=== PATIENT | female | born 1940 | race Caucasian/White ===

== ENCOUNTER 2018-03-16 14:06 | Emergency (ER) | payer MEDICARE, SELFPAY ==
[2018-03-16 14:08] VITALS: BP 172/104; PULSE 86; RESP 16; TEMP 36.6; O2SAT 97; BMI 22.8
--- NOTE | 2018-03-16 15:05 | RAD_ITS ---
STUDY: X-RAY - UNILATERAL RIBS ( LEFT ) WITH CHEST REASON FOR EXAM: Female, 77 years old. Fall, pain anterior ribs TECHNIQUE - RIBS: 4 view(s) of the ribs. TECHNIQUE - CHEST: PA COMPARISON: June 04, 2017 FINDINGS - RIBS: Normal visualized ribs without a demonstrated fracture. FINDINGS - CHEST: There is a stable calcified nodule at the left lung base. Normal size heart. There is a hiatal hernia. Normal visualized pulmonary arteries. There is atherosclerotic calcification of the aortic arch. Normal visualized thoracic spine. Normal visualized ribs, clavicles, and shoulders. There is no demonstrated abnormality of the visualized soft tissue structures of the upper abdomen. RAD/Ribs Uni Min 3V w/PA Chest IMPRESSION: RIBS: Normal x-ray examination of the ribs. CHEST: No acute cardiopulmonary process. Electronically Signed: Charlotte Lindo MD at 15:42 EDT Tel , Service support ,
--- NOTE | 2018-03-16 15:05 | RAD_ITS ---
STUDY: X-RAY - LEFT KNEE REASON FOR EXAM: Female, 77 years old. Fall TECHNIQUE: For view(s) of the knee. COMPARISON: None. FINDINGS: There is demineralization of the visualized distal femur. There is demineralization of the tibia and fibula. There could be an acute nondisplaced fracture of the lateral tibial plateau. Normal proximal tibiofibular articulation. There is mild degenerative arthrosis of the medial femorotibial compartment. There is mild degenerative arthrosis of the lateral femorotibial compartment. There is moderate degenerative arthrosis of the patellofemoral articulation. The soft tissue structures are unremarkable. RAD/Knee 4 or More Views IMPRESSION: There could be an acute nondisplaced fracture of the lateral tibial plateau. Electronically Signed: Dorie Rubio MD at 15:42 EDT , Service support ,
--- NOTE | 2018-03-16 15:05 | RAD_ITS ---
STUDY: X-RAY - RIGHT KNEE REASON FOR EXAM: Female, 77 years old. Fall TECHNIQUE: For view(s) of the knee. COMPARISON: None. FINDINGS: There is demineralization of the visualized distal femur. There is demineralization of the tibia and fibula. Normal proximal tibiofibular articulation. There is severe degenerative arthrosis of the medial femorotibial compartment with severe joint space narrowing. There is mild degenerative arthrosis of the lateral femorotibial compartment. 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 No definite joint effusion is seen. RAD/Knee 4 or More Views IMPRESSION: No acute fracture is demonstrated. Electronically Signed: Dorie Rubio MD at 15:40 EDT , Service support ,
--- NOTE | 2018-03-16 15:33 | ED.VISSUMM ---
- ER Visit Summary Date of Service: 03/16/18 Chief Complaint: Fall History of Present Illness: The patient is a 77 F who presents after mechanical fall. She was pushing a family member in a wheelchair when she tripped on 1 of the wheels. She fell and injured both of her knees in the right side of her chest. There was no head injury. She denies loss of consciousness or amnesia. She is not anticoagulated. She denies any headache or vomiting. She denies shortness of breath or abdominal pain. She does complain of pain along the right side of her chest and bilateral knees. She was able to stand on her own and has been able to ambulate without difficulty. Physical Examination: Afebrile vitals are notable for blood pressure 172/104 otherwise normal GCS of 15 no focal or lateralizing neurological deficits No distress No evidence of head trauma Neck nontender palpation Heart regular rate and rhythm Lungs are clear to auscultation with equal breath sounds bilaterally she does have right lower chest wall tenderness I do not appreciate any ecchymosis bruising crepitus Active full range of motion ?4 extremities Patient has diffuse tenderness over the bilateral knees but no appreciable effusion she has abrasions over the bilateral anterior knees. No deformities Normal strength and sensation distally Test Results: Rib series with a PA chest shows normal ribs no acute process. Right knee x-ray shows no acute fracture. Knee x-ray shows a possible acute nondisplaced lateral tibial plateau fracture. CT of the lower extremity is pending. Emergency Department Course and Treatment: X-rays are notable for a possible acute nondisplaced lateral tibial plateau fracture. The patient actually has minimal pain of the left knee she does have good range of motion. Will obtain a CT to further characterize this. Patient signed out to the oncoming physician to follow-up on results and ultimately I do believe the patient will be able to be discharged home. She was also given an incentive spirometer for chest contusion. Treatment Plan: [] Disposition: Pending CT lower extremity Impression: Chest contusion Knee contusions Possible left tibial plateau fracture This note was generated with [employer] dictation software. It may contain incorrect words, spelling, and punctuation that were not noted in review of the chart prior to signing ED Disposition - Plan for ED Patient: Chief Complaint: Fall Instructions: ED Abrasion, ED Contusion Chest Wall, ED Mechanical Fall Referrals: Otilio Gandhi MD [Primary Care Provider] -
--- NOTE | 2018-03-16 15:35 | ED.DEP ---
ED Disposition - Plan for ED Patient: Chief Complaint: Fall Instructions: ED Mechanical Fall, ED Contusion Chest Wall, ED Abrasion Referrals: Otilio Gandhi MD [Primary Care Provider] -
--- NOTE | 2018-03-16 16:16 | ED.DEP ---
ED Disposition - Plan for ED Patient: Chief Complaint: Fall Instructions: ED Abrasion, ED Contusion Chest Wall, ED Mechanical Fall, ED Fx Knee Referrals: Otilio Gandhi MD [Primary Care Provider] - Patito Jimenez DO [STAFF PHYSICIAN] - Additional Instructions: We recommended that you wear a knee immobilizer and bear weight on the left leg. We recommend that you follow-up with orthopedics.
--- NOTE | 2018-03-16 16:19 | ED.DEP ---
ED Disposition - Plan for ED Patient: Chief Complaint: Fall Instructions: ED Abrasion, ED Contusion Chest Wall, ED Mechanical Fall, ED Fx Knee Referrals: Patito Jimenez DO [STAFF PHYSICIAN] - Otilio Gandhi MD [Primary Care Provider] - Additional Instructions: We recommended that you wear a knee immobilizer and not bear weight on the left leg. We recommend that you follow-up with orthopedics.
[2018-03-16 16:35] VITALS: BP 155/101; RESP 16
== END 2018-03-16 16:35 | disposition home or self-care (01) ==
PROVIDERS: Emergency Provider Emergency Medicine; Family Provider Family Medicine; PCP Family Medicine
DX: S20.211A Contusion of right front wall of thorax, initial encounter (principal); S80.02XA Contusion of left knee, initial encounter; S80.01XA Contusion of right knee, initial encounter; S80.212A Abrasion, left knee, initial encounter; S80.211A Abrasion, right knee, initial encounter; W01.0XXA Fall on same level from slipping, tripping and stumbling without subsequent striking against object, initial encounter; Y93.9 Activity, unspecified; Y92.9 Unspecified place or not applicable; K21.9 Gastro-esophageal reflux disease without esophagitis; E78.00 Pure hypercholesterolemia, unspecified; Z90.49 Acquired absence of other specified parts of digestive tract; Z79.899 Other long term (current) drug therapy
CPT/HCPCS: 71101; 73564; 99282

== ENCOUNTER → 2018-08-01 10:42 | Outpatient (CLI) | payer MEDICARE, SELFPAY ==
[2018-08-01 11:53] LABS: Absolute Neutrophil Count 5.6 X10^3/uL (2.0-7.7); Basophil# 0.03 X10^3/uL; Basophil% 0.4 % (0-1); Eosinophil# 0.16 X10^3/uL; Eosinophils% 2.1 % (0-5); Hemoglobin 13.8 g/dl (12.0-15.0); Lymphocyte % 13.2 % (19-41); Mean Corp Hgb Conc 32.9 g/gl (32-36); Mean Corpuscular Hgb 31.4 pg (27.0-32.0); Mean Corpuscular Volume 95.5 fL (81-99); Mean Platelet Vol. 10.2 fl (6.2-12.0); Monocyte# 0.76 X10^3/uL; Neutrophil # 5.63 X10^3/uL (2.7-7.7); Neutrophil % 74.2 % (47-70); POSITIVE COUNT NO; POSITIVE DIFFERENTIAL NO; POSITIVE MORPHOLOGY NO; Platelet Count 253 K/mm3 (150-450); RBC Distribution Width CV 14.2 % (11.6-14.6); RBC Distribution Width SD 47.5 fl (35.1-43.9); White Blood Count 7.6 K/mm3 (4.4-11.0)
[2018-08-01 12:06] LABS: ALB/GLOB Ratio 1.2 RATIO (0.9-2.4); AST(SGOT) 53 U/L (15-37); Alanine Aminotransfer ALT/SGPT 87 U/L (13-56); Albumin, Serum 4.2 g/dL (3.2-5.0); Alkaline Phosphatase 158 U/L (45-117); Anion Gap 9 (5-15); BUN 21 mg/dL (7-18); Calcium,Total 9.1 mg/dL (8.5-10.1); Chloride 102 mmol/L (98-107); Cholesterol 218 mg/dL (200); Creatinine, Serum 0.75 mg/dL (0.55-1.02); EST Glomerular Filtration Rate 79 mL/min (>60); Est Glom Filt Rate - Afr Amer 96 mL/min (>60); Globulin 3.6 g/dL (2.2-4.2); Glucose 89 mg/dL (74-106); High Density Lipoprotein 84 mg/dL; Potassium 3.8 mmol/L (3.5-5.1); Protein, Total 7.8 g/dL (6.4-8.2); Sodium Level 141 mmol/L (136-145); Triglycerides 124 mg/dL; Very Low Density Lipoprotein 25 mg/dL (5-40)
== END ==
PROVIDERS: Family Provider Family Medicine; PCP Family Medicine; Visit Provider Family Medicine
DX: E78.5 Hyperlipidemia, unspecified (principal); I10 Essential (primary) hypertension
CPT/HCPCS: 36415; 80053; 80061; 85025

== ENCOUNTER → 2018-11-27 13:50 | Outpatient (CLI) | payer MEDICARE, SELFPAY | PROVIDERS: Family Provider Family Medicine; PCP Family Medicine; Visit Provider Family Medicine | DX: N39.0 Urinary tract infection, site not specified (principal) | CPT/HCPCS: 87077; 87086; 87088; 87186 ==

== ENCOUNTER → 2019-01-11 14:26 | Outpatient (CLI) | payer MEDICARE, SELFPAY | PROVIDERS: Family Provider Family Medicine; PCP Family Medicine; Visit Provider Family Medicine | DX: N39.0 Urinary tract infection, site not specified (principal) | CPT/HCPCS: 87077; 87086; 87088; 87186 ==

== ENCOUNTER → 2019-02-01 | Outpatient (CLI) | payer MEDICARE, SELFPAY ==
--- NOTE | 2019-02-01 16:24 | US_ITS ---
STUDY: RENAL ULTRASOUND - COMPLETE REASON FOR EXAM: Female, 78 years old. Recurrent UTI TECHNIQUE: Ultrasound evaluation of the kidneys was performed with real-time and static roca-scale imaging. COMPARISON: None. FINDINGS: RIGHT KIDNEY: Normal location of the right kidney, which is normal in size. The right kidney measures 11.3 x 4.8 x 3.7 cm. There is a normal cortex of the right kidney. The renal cortex measures 1.3 cm. There is no right renal mass or cyst. There are no right renal calculi. There is no right hydronephrosis. DISTAL RIGHT URETER: There is non-visualization of the distal right ureter. LEFT KIDNEY: Normal location of the left kidney, which is normal in size. The left kidney measures 10.8 x 5.5 x 5.2 cm. There is a normal cortex of the left kidney. The renal cortex measures 1.8 cm. There is no left renal mass or cyst. There are no left renal calculi. There is no left hydronephrosis. DISTAL LEFT URETER: There is non-visualization of the distal left ureter. BLADDER: The distended urinary bladder has a volume of 209 ml. The post void urinary bladder has a volume of 193 ml. There is a normal wall thickness of the distended urinary bladder but mildly irregular. There is no demonstrated mass within the urinary bladder. There are no demonstrated bladder calculi. US/Kidney and Bladder IMPRESSION: Normal ultrasound of the kidneys. Significant post void residual of the urinary bladder. Mild irregular wall thickness in the urinary bladder. Electronically Signed: Isidro Grossman DO at 20:25 EDT Tel [phone], Service support ,
== END | disposition home or self-care (01) ==
LOC: US 16:19
PROVIDERS: Family Provider Family Medicine; PCP Family Medicine; Referring Provider Urology; Visit Provider Urology
DX: Z87.440 Personal history of urinary (tract) infections (principal)
CPT/HCPCS: 76770

== ENCOUNTER 2019-08-09 13:00 | Outpatient (RCR) | payer MEDICARE, SELFPAY ==
--- NOTE | 2019-08-09 14:10 | HP.PTDCSUM ---
HP - PT D/C Summary It has been my pleasure to treat PAULIE BARRIOS under orders from Otilio Gandhi MD, for the diagnosis of Truncal muscle weakness for a total of 9 visit(s). Discharge Date: Please see the following information for a summary of their discharge status. - Subjective Subjective: Pt. reports therapy has been great, can feel her posture has improved and her muscles have gotten stronger. Feels comfortable using weight machine w/ [employer] membership. - Overall Improvement % Improvement: 95 - Objective Objective/Function: Posture: improved - fair. Gait: no deviations noted. SLS: R/L 15 seconds. ROM: Ankle/Knee/Hip/Lumbar/Shoulder WFL. Strength: Ankle/knee 5/5, Hip 5/5, Shoulder 5/5 Core: fair. 30 STS: 18. Educated on weight machines/exercises to use after PT - Goals Goal 1:: pt. will be I w/ HEP & progression Goal 2:: Pt. will maintain proper posture t/o tx session to demo improved core strength Goal 3:: Pt. will demo 5/5 strength LE/UE - Plan Plan: 08/09/19 Pt. D/C - instructed to continue HEp/exercises I w/ HW membership. Return if usses/concerns. - D/C Information If there are questions or concerns regarding this patient's physical therapy, please feel free to call me at [phone]. Thank you for the referral of this patient. Sincerely, Radha Pike DPT
== END 2019-08-09 15:31 | disposition home or self-care (01) ==
LOC: PT 13:00
PROVIDERS: Family Provider Family Medicine; PCP Family Medicine; Referring Provider Family Medicine; Visit Provider Family Medicine
DX: M62.81 Muscle weakness (generalized) (principal)
CPT/HCPCS: 97110; 97161; 97164

== ENCOUNTER → 2019-09-21 10:34 | Outpatient (CLI) | payer MEDICARE, SELFPAY ==
--- NOTE | 2019-09-21 10:38 | RAD_ITS ---
STUDY: X-RAY - THORACIC SPINE REASON FOR EXAM: Female, 78 years old. ? VERTEBRAL FX, PAIN LEFT SIDE T-SPINE TECHNIQUE: 3 view(s) of the thoracic spine were obtained. COMPARISON: Prior chest and rib series of March 16, 2018 and a prior PA and lateral chest of June 04, 2017 FINDINGS: Normal kyphosis of the thoracic spine. There is no substantial scoliosis. Old moderate superior endplate compression deformity of T12 which is not substantially changed from the prior examinations. Now there is a moderate, 50%, compression deformity of T10 that was not present on the prior chest radiograph of June 04, 2017 or on the rib exam of April 15, 2018. Degenerative disc changes are generally mild to moderate. Atherosclerotic calcifications and tortuosity of the thoracic aorta. RAD/Thoracic Spine 3 Views IMPRESSION: Moderate, 50% compression deformity of T10 that is a new finding since the last available exam of March 16, 2018. Old moderate compression deformity of T12 has been present since the earliest available radiograph of June 04, 2017. Mild to moderate degenerative disc changes. Electronically Signed: Cherelle Krueger MD at 21:18 EST , Service support ,
== END ==
PROVIDERS: Family Provider Family Medicine; PCP Family Medicine; Referring Provider Family Medicine; Visit Provider Family Medicine
DX: M54.9 Dorsalgia, unspecified (principal)
CPT/HCPCS: 72072

== ENCOUNTER → 2019-10-30 10:08 | Outpatient (CLI) | payer MEDICARE, SELFPAY ==
--- NOTE | 2019-10-30 10:45 | MRI_ITS ---
STUDY: MRI THORACIC SPINE WITHOUT CONTRAST REASON FOR EXAM: Female, 78 years old. Thoracic compression fracture TECHNIQUE: Standardized fat and water weighted pulse sequences were obtained in the sagittal and axial planes. COMPARISON: None. FINDINGS: An acute on chronic compression fracture of the T10 vertebral body is present with diffuse edema and loss of height at more than 50% with no significant retropulsion. The anterior aspect of the T10 vertebral body is the most affected component. An acute mild compression fracture of the T11 vertebral body is also present with diffuse edema and mild loss of height without significant retropulsion of the posterior cortex. There is a chronic compression fracture/deformity of the T12 vertebral body with mild loss and mild retropulsion/posterior disc osteophyte complex at the T11-T12 level. Mild marrow edema crosses into the posterior elements of T10 and T11. A benign small 1.63 cm foraminal nerve root sleeve cyst is present on the right at T10-T11. No additional areas of marrow edema or loss of height are present. Mild to moderate multilevel disc space narrowing with diffuse disc bulges and protrusions are present at multiple levels throughout the thoracic spine but without direct cord compression. No significant central canal stenosis is present. A benign fatty hemangiomas present in the central aspect of the T11 vertebral body. Normal kyphosis of the thoracic spine. There is no substantial scoliosis. Normal visualized thoracic cord. Normal conus medullaris that terminates at the T12-L1 level. No cord edema or syrinx formation is seen. No critical foraminal stenosis is seen on the current study. Multilevel endplate spondylosis is present. The soft tissue structures are unremarkable. MRI/Spine Thoracic (Routine) IMPRESSION: 1. Acute on chronic compression fracture of the T10 vertebral body 2. Acute mild compression fracture of the T11 vertebral body. 3. Old compression deformity of the T12 vertebral body. 4. Multilevel degenerative changes. 5. A benign small 1.63 cm foraminal nerve root sleeve cyst is present on the right at T10-T11. Electronically Signed: Zafar Dutton MD at 17:27 EST , Service support ,
== END ==
PROVIDERS: PCP Family Medicine; Referring Provider Nurse Practitioner Family; Visit Provider Nurse Practitioner Family
DX: M48.54XA Collapsed vertebra, not elsewhere classified, thoracic region, initial encounter for fracture (principal)
CPT/HCPCS: 72146

== ENCOUNTER 2019-11-19 08:47 | Day surgery (SDC) | payer MEDICARE, SELFPAY ==
--- NOTE | 2019-11-19 | BON_PTH ---
PATIENT: PAULIE BARRIOS LOC: [facility] – [place] U#:[id number] AGE/SX: 78/F ROOM: RE11/19/[address]: Dr. Rex Cash MD : [id number] BED: DIS: 11/19/2019 SPEC #: [id number] RECD: 11/19/19 13:37 STATUS: DION REQ #: [id number] JUAN CARLOS: 11/19/19 00:[address]: Rex Cash DEPT: SURGICAL PATHOLOGY RECD BY: Alan Moore ENTERED: 11/19/19 13:38 SP TYPE: Bone OTHR DR: Dr. Otilio Gandhi MD Tissues: A - Vertebra, NOS B - Vertebra, NOS Procedures: Decalcification bone/plaque Surgery Specimen Level V HEADER OPERATION: Kyphoplasty T10 and T11 PRE-OP DIAGNOSIS: Compression fracture thoracic spine T10 and T11 TISSUE SUBMITTED: A - T10 bone biopsy, B - T11 bone biopsy MICROSCOPIC DIAGNOSIS A. T10 bone, biopsy: Consistent with organizing fracture callous. B. T11 bone, biopsy: Consistent with organizing fracture callous. AM:bunny 11/21/19 MICROSCOPIC DESCRIPTION Slides are reviewed. GROSS DESCRIPTION A - Received in fixative is one container labeled with the patient's name and designated T10 bone biopsy. The specimen consists of an elongated piece of hill bone measuring 0.6 cm in length and 0.2 cm in diameter. The specimen is totally submitted in one cassette after decalcification. B - Received in fixative is one container labeled with the patient's name and designated T11 bone biopsy. The specimen consists of an elongated piece of hill bone measuring 0.4 cm in length and 0.2 cm in diameter. The specimen is totally submitted in one cassette after short decalcification. / SJ:bunny 11/19/19 TC: CPT: 36740 x2, 93546 x2
[2019-11-19 09:23] VITALS: BP 147/86; PULSE 89; RESP 14; TEMP 36.4; O2SAT 97; BMI 21.9
[2019-11-19] MEDS: Lactated Ringers 1,000 ML 100 ML IV (09:49)
--- NOTE | 2019-11-19 10:42 | RAD_ITS ---
STUDY: X-RAY - THORACIC SPINE REASON FOR EXAM: Female, 78 years old. KYPHOPLASTY T10-T11 -- 226.4 FLUORO SEC, 35.33mGy, 22 FLUORO IMAGES TECHNIQUE: 7 intraoperative view(s) of the thoracic spine were obtained. COMPARISON: None. FINDINGS: Intraoperative imaging provided for kyphoplasty of the T10 and T11 vertebrae. RAD/Thoracic Spine 2 Views IMPRESSION: Intraoperative imaging provided for kyphoplasty of the T10 and T11 thoracic vertebrae. Electronically Signed: Toby Amaya, at 15:48 EST , Service support ,
[2019-11-19] MEDS: Bupivacaine Mpf 0.5% 30 ML VIAL (10:48)
[2019-11-19] MEDS: Cefazolin 2 GM in 0.9% Normal Saline 100 ML IV (10:48)
[2019-11-19] MEDS: Bacitracin 500 UNITS/GM PACKET (11:08)
[2019-11-19 11:55] VITALS: BP 140/87; BP 147/86; PULSE 70; RESP 16; TEMP 36.7; O2SAT 100
[2019-11-19 12:00] VITALS: BP 137/73; BP 147/86; PULSE 73; RESP 16; O2SAT 100
[2019-11-19 12:05] VITALS: BP 147/86; BP 171/101; PULSE 76; RESP 16; O2SAT 100
[2019-11-19 12:10] VITALS: BP 147/86; BP 149/91; PULSE 78; RESP 16; TEMP 36.7; O2SAT 100
[2019-11-19 12:42] VITALS: BP 147/86
--- NOTE | 2019-11-19 12:55 | OP.PCM_ITS ---
Report of Operation Date of Procedure: 11/19/19 Description of Surgical Findings:: PROCEDURES: 1. Dorys balloon kyphoplasty at the T10 level and T11 level 2. Insertion of Dorys HV-R bone cement under low pressure at the T10 and T11 Level 3. Bone biopsy at T10 and T11 4. Fluoroscopic guidance and interpretation of images PREOPERATIVE DIAGNOSES: Osteoporosis, compression fracture of T10 and T11 POSTOPERATIVE DIAGNOSES: Osteoporosis, compression fracture of T10 and T11 ANESTHESIA: MAC COMPLICATIONS: None BLOOD LOSS: Minimal PROCEDURE IN DETAIL: History and physical today was reviewed. Risks and benefits of procedure explained. The patient understood, agreed to procedure, informed consent was obtained. IV inserted per routine protocol. The patient was taken to the operating room, placed in the prone position with a pillow positioned underneath the chest. A 2 g of Ancef IV piggyback was infused per anesthesia. The upper and middle back area was prepped and draped in a sterile fashion using iodine x3. Under direct visualization with fluoroscopy with the C-arm, which brought into position on AP as well as lateral view at the T10 level., the T10 pedicle was then identified. In the view of the collapsed T10, a transpedicular approach to the vertebral body was appropriate. Starting on the left side at L2 level, skin and subcutaneous tissue in size approximately 14 cc of a mixture of 0.5% Marcaine and 2% lidocaine with a 25-gauge regular needle followed by a 25-gauge 3-1/2 inch spinal needle towards the pedicle to anesthetize the periosteum,an 11-gauge needle was advanced through the T10 pedicle through the junction of the pedicle and the vertebral body on the left side. Position was then confirmed on AP as well as lateral view. Following satisfactory placement of the needle to make sure it is further off the midline and interlaminar space. the 11-gauge trocar was advanced approximately 3 mm from the anterior cortex on the lateral view. AP and lateral images were then taken to verify position and trajectory of the needle. The introducer was then advanced through the pedicle. Once the trocar was at the junction of the pedicle and the vertebral body, a lateral image was taken to ensure that the cannula was positioned approximately 1 cm past the vertebral body and a lateral image was then taken to ensure correct position and through the cannula, a drill was then advanced into the vertebral body under fluoroscopic guidance towards the anterior cortex creating a channel. The anterior cortex were then probed with guide pen to ensure no perforation in the anterior cortex. After completion of the entry into the vertebral body, a 15 mm inflatable bone tamp was then inserted through the cannula and advanced under direct fluoroscopic guidance into the vertebral body near the anterior cortex., The biopsy was then taken at the T10 level. After completion of the entry into the vertebral body, a balloon tamp utilizing radiopaque marker bands on the bone tamp were identified using AP and lateral images. The above sequence of instrument placement was then repeated on the left side at the T11 the vertebral body. Once both bone tamps were in position, they were inflated to approximately 4 mL and making sure that the pressure is not passing 250 psi. Expansion of the bone tamp was then done sequentially in an increments of 0.25 to 0.5 mL of contrast with a careful attention was being paid to the inflation pressure and the balloon position. The inflation was then monitored on AP and lateral view images. The final balloon volume was 2.5 mL on the left side T10 and 2.7 mL on the left T11 level. There was no breach of the lateral wall or the anterior cortex of the vertebral body. Direct reduction of the fracture was then achieved. Endplate movement was then noticed and approximately 3-5 mm of the height baptist was achieved at T10 and at approximately 3 mm reduction was then achieved at the T11 level. Under fluoroscopic imaging and a bone void filler, internal fixation was achieved through a low pressure injection of a [place] HV-R bone cement. The cavity was then filled with a total volume of 3.8 mL on the left side at T10 and approximately 3.6 mL of cement on the left side at the T11 level. Once the bone cement had hardened, the cannula was then removed. Once the cannula was removed and satisfactory hemostasis was maintained, the incision as then closed with a 4-0 Vicryl at the skin. The patient was kept in the prone position for approximately 10 minutes post-cement injection. The patient was then turned into supine position, monitored briefly and returned to PACU. The patient was moving both of her lower extremities at the same time without any apparent neurological deficits. Throughout the procedure, there were no intraoperative complications, Motor as well as sensory exam was unchanged from prior to procedure. ESTIMATED BLOOD LOSS: Minimal less than 25 mL ASSESSMENT AND PLAN: This is a 78-year-old F with compression fracture of T10 and T11, osteoporosis, status post [place] balloon kyphoplasty at T10, Dorys balloon kyphoplasty at T11 and insertion of Dorys HV-R bone cement under low pressure at T10 and T11 level and bone biopsied at both levels. The patient will continue her current medication. The patient will follow-up in approximately 1 week for re-evaluation, postop instructions were given to the patient as well as her daughter in writing as well as verbally.
== END 2019-11-19 13:11 | disposition home or self-care (01) ==
LOC: SDC 08:51 → AC 08:55
PROVIDERS: PCP Family Medicine; Referring Provider Anesthesiology Pain Medicine; Visit Provider Anesthesiology Pain Medicine
PROC: (CPT 22513; principal; 2019-11-19 10:45)
DX: S22.070A Wedge compression fracture of T9-T10 vertebra, initial encounter for closed fracture (principal); S22.080A Wedge compression fracture of T11-T12 vertebra, initial encounter for closed fracture; W19.XXXA Unspecified fall, initial encounter; Y93.9 Activity, unspecified; Y92.9 Unspecified place or not applicable; Y99.9 Unspecified external cause status; M81.0 Age-related osteoporosis without current pathological fracture; I10 Essential (primary) hypertension; E78.5 Hyperlipidemia, unspecified; K21.9 Gastro-esophageal reflux disease without esophagitis; Z78.0 Asymptomatic menopausal state; Z79.899 Other long term (current) drug therapy; Z79.891 Long term (current) use of opiate analgesic
CPT/HCPCS: 01936; 22513; 22515; 72070; 76000; 88305; 88307; 88311; J7120

== ENCOUNTER 2019-12-02 16:21 | Observation (INO) | payer MEDICARE, SELFPAY ==
[2019-12-02] VITALS (13 sets, daily range): BP systolic 150–181; BP diastolic 95–121; PULSE 71–105; RESP 11–18; TEMP 36.4–36.6; O2SAT 96–98; BMI 23.6; BMI 21.6
--- NOTE | 2019-12-02 16:46 | EKG12_ITS ---
Test Reason : NEURO Blood Pressure : / mmHG Vent. Rate : 085 BPM Atrial Rate : 085 BPM P-R Int : 150 ms QRS Dur : 086 ms QT Int : 380 ms P-R-T Axes : 039 -38 021 degrees QTc Int : 452 ms Sinus rhythm with Premature atrial complexes Possible Left atrial enlargement Left axis deviation Abnormal ECG Confirmed by ABBE FIORE, ANAT ([id number]), editorial writer DIPAK AMANDA ([id number]) on 12/03/2019 10:21:17 AM Referred By: PERRI Confirmed By:ANAT MCADAMS MD
--- NOTE | 2019-12-02 16:46 | CT_ITS ---
STUDY: CT BRAIN WITHOUT CONTRAST REASON FOR EXAM: Female, 78 years old. SHARP PAIN TO FOREHEAD,THEN HEADACHE FOLLOWED BY LEFT HAND NUMBNESS -- AL SYMPTOMS RESOLVED ON RIDE TO HOSP RADIATION DOSAGE (If Supplied By Facility): CTDIvol = ( 44.99 ) mGy, DLP = ( 745.49 ) mGycm TECHNIQUE: Transaxial CT imaging of the brain was performed without administration of intravenous contrast material. Individualized dose optimization techniques were used for this CT. COMPARISON: No relevant priors. FINDINGS: Normal soft tissue structures. Normal calvarium. There is mild cerebral atrophy with widening of the extra-axial spaces and ventricular dilatation. There are areas of decreased attenuation within the white matter tracts of the supratentorial brain, consistent with microvascular disease changes. Normal basal ganglia and thalami. Normal brainstem. There is mild cerebellar atrophy. There is no intracranial hemorrhage. There are no findings of an acute ischemic infarction. Normal visualized paranasal sinuses. CT/Brain/Head without Contrast IMPRESSION: Chronic involutional changes of the brain. Electronically Signed: Bogdan Davis DO at 17:30 EST Tel , Service support ,
--- NOTE | 2019-12-02 16:50 | RAD_ITS ---
STUDY: X-RAY CHEST REASON FOR EXAM: Female, 78 years old. Headache TECHNIQUE: Single frontal view of the chest. COMPARISON: 06/04/17 FINDINGS: Cardiac silhouette unremarkable. Pulmonary vascularity unremarkable. Aorta atherosclerotic. No focal airspace opacities. No pleural effusions. Left base granuloma. Upper abdomen unremarkable. There is evidence of prior lower thoracic kyphoplasty. No pneumothorax. RAD/Chest 1 View IMPRESSION: No acute cardiopulmonary findings Electronically Signed: Sg Pugh, at 17:50 EST Tel , Service support ,
[2019-12-02 17:02] LABS: Absolute Lymphocyte Count 1.12 X10^3/uL (0.83-4.51); Absolute Neutrophil Count 3.7 X10^3/uL (2.0-7.7); Basophil# 0.02 X10^3/uL; Basophil% 0.4 % (0-1); Eosinophil# 0.04 X10^3/uL; Eosinophils% 0.7 % (0-5); Hematocrit 42.4 % (37-47); Hemoglobin 13.8 g/dL (12.0-15.0); Lymphocyte # 1.12 X10^3/ul (4.0); Lymphocyte % 20.7 % (19-41); Mean Corp Hgb Conc 32.5 g/dL (32-36); Mean Corpuscular Hgb 31.4 pg (27.0-32.0); Mean Corpuscular Volume 96.4 fL (81-99); Mean Platelet Vol. 9.6 fl (6.2-12.0); Monocyte# 0.55 X10^3/uL; Monocyte% 10.1 % (0-10); NRBC Flagged by Analyzer 0 % (0-5); Neutrophil # 3.67 X10^3/uL (2.7-7.7); Neutrophil % 67.7 % (47-70); Platelet Count 270 K/mm3 (150-450); RBC Distribution Width CV 13.9 % (11.6-14.6); RBC Distribution Width SD 49.6 fl (35.1-43.9); White Blood Count 5.4 K/mm3 (4.4-11.0)
[2019-12-02 17:06] LABS: Partial Thromboplast Time 27.1 Seconds (24.1-36.2); Prothrombin Time (Protime)PT. 13.3 SECONDS (11.7-14.9)
[2019-12-02 17:16] LABS: Bedside Glucose 99 mg/dL (70-110)
--- NOTE | 2019-12-02 17:16 | ED.DCSUM_ITS ---
History of Present Illness Chief Complaint: Neuro S/Sx Informant: Patient, Family, Promotional Advertising Assistant Onset: Today Context: Sudden Onset Timing: - - Has resolved lasted approximately 30 minutes Quality and Location: Left Arm Parasthesia, Left Arm Weakness. Negative for: Right Facial Droop, Left Facial Droop, Right Face Paresthesia, Left Face Parasthesia, Right Arm Parasthesia, Right Leg Parasthesia, Left Leg Parasthesia, Right Arm Weakness, Right Leg Weakness, Left Leg Weakness, Slurred Speech, Expressive Aphasia, Receptive Aphasia, Difficulty with Ambulation Onset: Suddenly around 3:30 PM Current Severity: Mild Maximum Severity: Severe Worsened by: Nothing Relieved by: Rest Associated Symptoms: Negative for: Headache, Nausea, Vomiting, Chest Pain Narrative: 78-year-old female past medical history of hyperlipidemia presents to the emergency department by squad from home with left upper extremity weakness and paresthesias. Around 3:30 PM the patient stood up she states that she noticed some squiggly lines in her vision in both eyes that lasted a few seconds she developed a frontal headache and then she had numbness and weakness in her left upper extremity. She states that it lasted approximately 30 minutes and has since resolved. She did not lose vision. She had no double vision. She had no difficulties with speech. She was able to ambulate normally. She did not have any lower extremity symptoms. No facial droop. No chest pain. She was not lightheaded or dizzy. No nausea or vomiting. No diaphoresis. No falls injuries or traumas. She is not on anticoagulation. She has no constitutional symptoms. She had a kyphoplasty done about 2.5 weeks ago and has been doing well since that time. She denies a history of TIA or CVA. Prior similar symptoms: No Recent Illness/Hospitalization: No Past Medical History - Allergies and Home Meds Allergies/Adverse Reactions: Allergies amoxicillin Adverse Reaction (Verified 12/02/19 16:47) Unknown ibuprofen Adverse Reaction (Verified 12/02/19 16:47) Unknown loratadine [From Claritin] Adverse Reaction (Verified 12/02/19 16:47) Unknown pravastatin [From Pravachol] Adverse Reaction (Verified 12/02/19 16:47) Unknown sulfamethoxazole [From Septra] Adverse Reaction (Verified 12/02/19 16:47) Unknown trimethoprim [From Septra] Adverse Reaction (Verified 12/02/19 16:47) Unknown COMBID Adverse Reaction (Uncoded 12/02/19 16:47) Unknown Primary Care Physician: Otilio Gandhi MD [Primary Care Provider] - Prior records reviewed: Yes Past Medical History: - - Hyperlipidemia Surgical History: - - Kyphoplasty Lives: Alone Smoking Status: Never smoker Alcohol: None Drugs: None Review of Systems All systems negative except as indicated General: Denies: Chills, Fever Eyes: Denies: Visual changes - bilaterally, Blurred Vision - bilaterally, Diplopia ENT: Denies: Rhinorrhea, Sore throat Cardiovascular: Denies: Chest pain, Palpitations, Heart racing Respiratory: Denies: Dyspnea, Cough, Sputum Gastrointestinal: Denies: Abdominal pain, Nausea, Vomiting, Diarrhea Genitourinary: Denies: Dysuria, Hematuria, Frequency Musculoskeletal: Denies: Myalgias, Arthralgias, Neck pain, Back pain, Swelling, Extremity Pain Skin: Denies: Rash, Abscess, Abrasions, Wounds Neurological: Reports: Headache, Weakness, Parasthesia. Denies: Numbness Psych: Denies: Depression, Anxiety Endocrine: Denies: Polyuria, Polydipsia Hematologic: Denies: Easy bruising, Easy bleeding Allergy: Denies: Uticaria, Swelling of the mouth, Swelling of the tongue STROKE Vital Signs/Narrative: Vital Signs Temp Pulse Resp BP Pulse Ox 12/02/19 16:24 98 F 91 18 154/104 H 98 Inital Vital Signs reviewed: Yes General: Well nourished, Well developed Head: Normocephalic, Atraumatic Eyes: Perrl, EOMI ENT: Moist mucous membranes Neck: Supple, Nontender, No lymphadenopathy, No JVD Cardiovascular: Regular rate, Regular rhythm, No murmurs Respiratory: No distress, CTA bilaterally, Chest nontender Abdomen: Soft, Nontender, Nondistended, Normal bowel sounds, No masses Back: Nontender, Normal Inspection Extremities: Nontender, No edema Skin: Normal color, No rash, No Trauma Neurological: Alert, Oriented x3, Cranial nerves II-XII grossly intact, Normal Strength, Normal Sensation, Normal DTR, Normal Gait, Recall 12/03, - - NIH stroke scale was performed and was 0 Psychological: Normal affect, Normal Mood Diagnostic/Tx/Re-eval - Rhythm Strip Rhythm Strip: Sinus Rhythm Rate: 85 Ectopy: None - EKG Initial EKG Interpretation: Sinus Rhythm, No Acute Injury Pattern Prior: Unchanged - Medical Decision Making Stroke Team Activated: No On arrival NIH stroke scale was performed and was 0. EKG was sinus rhythm no ST segment or T wave changes normal intervals no ectopy. CT brain was obtained showing chronic changes no acute abnormality. Laboratory work-up was unremarkable as well as was chest x-ray. Patient will require admission for further work-up and evaluation secondary to her transient episode of left upper extremity weakness and paresthesias. She remains hemodynamically stable she has not had any worsening or return of her symptoms. ED Disposition - Plan for ED Patient: Referrals: Otilio Gandhi MD [Primary Care Provider] -
[2019-12-02 17:26] LABS: Anion Gap 5 (5-15); BUN 32 mg/dL (7-18); BUN/Creat Ratio 38.3 RATIO (10-20); Calcium,Total 9.8 mg/dL (8.5-10.1); Chloride 104 mmol/L (98-107); Creatinine, Serum 0.84 mg/dL (0.55-1.02); EST Glomerular Filtration Rate 70 mL/min (>60); Est Glom Filt Rate - Afr Amer 84 mL/min (>60); Estimated Creatinine Clearance 52.81 ml/min; Glucose 110 mg/dL (74-106); Potassium 3.4 mmol/L (3.5-5.1); Sodium Level 140 mmol/L (136-145)
--- NOTE | 2019-12-02 18:57 | ED.RN ---
dr. Jordan cancels NIH every 30 minutes.
--- NOTE | 2019-12-02 20:01 | HP.PCM_ITS ---
Problem List (1) TIA (transient ischemic attack) Status: Acute Comment: vs a migraine equivalent (2) Migraines Status: Suspected Qualifiers: Migraine type: with aura (3) Elevated blood pressure reading Status: Acute Comment: No history of hypertension (4) Hyperlipidemia Status: Chronic (5) Osteoarthritis Status: Chronic (6) Hypokalemia Status: Acute (7) Dehydration Status: Acute (8) Grief reaction Status: Acute Comment: 2 months ago (9) Vertebral compression fracture Status: Acute (10) History of kyphoplasty Status: Acute Comment: Dr. Albert 2 weeks ago (11) Osteoporosis Status: Suspected History of Present Illness Date of Admission: 12/02/19 Chief Complaint: numbness and weakness of the left hand The patient is a 78 year old F with a past medical history of hyperlipidemia, osteoarthritis and vertebral compression fractures with recent kyphoplasty by Dr. Albert within the past 2 weeks who presented to the emergency department at [facility] on 12/02/2019 by galina complaining of numbness and weakness in her left hand. Vital signs at presentation to the emergency room were temp 98, pulse rate 91, blood pressure 154/104, respiratory rate 18 and she was 98% saturated on room air. Prior to the onset of numbness and weakness she had squiggly lines in her right eye followed by a frontal headache and then the numbness and weakness in her left hand. She has in the past had squiggly lines and headaches but has never had any neurologic complaints. She denies any history of migraine cephalgia but she has a grandson who has migraines. She denies any history of CVA or TIA. Blood pressure is elevated in the emergency room but she says it has been elevated recently. Her 2 months ago and she lives by herself and is anxious. She has never been treated for hypertension. CT of the brain in the emergency department showed chronic involutional changes only. Chest x-ray showed no acute cardiopulmonary findings. CBC is unremarkable. The chemistry showed a low potassium at 3.4 and a BUN of 32 with a creatinine of 0.84 and a BUN/creatinine ratio of 38.3. Troponin was less than 0.015. EKG had a left axis deviation with no acute ST or T wave changes. The numbness and weakness in her left hand completely resolved while she was in the emergency department. Her NIH score was 0 at the time of my exam. She is being admitted to a monitored bed on PCU to be evaluated for TIA versus possible classic migraine with aura and transient focal neurologic deficit. Past Medical History Past Medical History (Chronic Problems): Chronic Problems Hyperlipidemia (Chronic) Osteoarthritis (Chronic) Allergies amoxicillin Adverse Reaction (Verified 12/02/19 16:47) Unknown ibuprofen Adverse Reaction (Verified 12/02/19 16:47) Unknown loratadine [From Claritin] Adverse Reaction (Verified 12/02/19 16:47) Unknown pravastatin [From Pravachol] Adverse Reaction (Verified 12/02/19 16:47) Unknown sulfamethoxazole [From Septra] Adverse Reaction (Verified 12/02/19 16:47) Unknown trimethoprim [From Septra] Adverse Reaction (Verified 12/02/19 16:47) Unknown COMBID Adverse Reaction (Uncoded 12/02/19 16:47) Unknown Home Medications: Ambulatory Orders Medication Instructions Recorded Atorvastatin Calcium [Lipitor] 10 mg PO QHS 02/27/17 Dicyclomine HCl 10 mg PO DAILY 02/27/17 Omeprazole [Prilosec] 20 mg PO DAILY 02/27/17 Cholecalciferol (Vitamin D3) 1,000 unit PO DAILY 03/16/18 [Vitamin D3] Mv-Mn/Folic AC/Calcium/Vit K1 1 each PO DAILY 03/16/18 [Women's 50 Plus Daily Formula] Naproxen Sodium [Aleve] 220 mg PO DAILY 03/16/18 Cranberry Fruit Extract [Cranberry] 500 mg PO DAILY 11/15/19 Surgical History: cholecystectomy, - - Kyphoplasty, bilateral oophorectomy for ovarian cysts Psychiatric History: No pertinent psych hx 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 Smoking Status: Never smoker Tobacco Use: Non-smoker Alcohol: None Drugs: None - *Family History Maternal History Items: Hypertension, - - Her mother had a stroke and or a heart attack, patient cannot recall, and at the age of 83 Paternal History Items: - - Her father when she was only 1 years old and she has no knowledge of him or her paternal side of the family Sibling History Items: No pertinent history Offspring History Items: - - She has a daughter who is healthy. Review of Systems Constitutional: Reports: Weight Change - she has lost some weight.....appetite is somewhat decreased due to grief related to her passing away 2 months ago. Denies: Chills, Fever Eyes: Reports: Vision Change - squiggles in the R eye prior to the onset of CENT[place] and then L hand numbness and weakness HEENT: Denies: Head Aches, Sinus Congestion, Sinus Drainage Cardiovascular: Denies: Chest Pain, Edema, Heaviness, Light Headedness, Orthopnea, Palpitations, Syncope Respiratory: Denies: Cough, Shortness of Breath, Shortness of breath at rest, Sputum production Gastrointestinal: Denies: Abdominal Pain, Constipation, Diarrhea, Nausea, Vomiting Genitourinary: Denies: Dysuria Gynecological: Denies: Vaginal discharge Musculoskeletal: Denies: Joint Pain, Joint Tenderness Skin: Denies: Jaundice, Rash, Wounds Neurological: Reports: Focal weakness, Numbness. Denies: Balance problems, Blurred vision, Double vision, Change in Speech, Slurred speech, Confusion, Tingling, Tremor, Seizures Psychiatric: Reports: Anxiety, Depression - suspect. Denies: Homicidal Ideations, Suicidal Ideations Endocrine: Reports: Change in Body Habitus. Denies: Heat/ Cold Intolerance, Hx of Thyroiditis Hematologic/ Lymphatic: Denies: Easy Bruising, Easy Bleeding, Hx of blood clot VTE Information - Inpt Only VTE Present on Admission: No VTE Mechan Device Prophylaxis: None VTE Pharm Prophylaxis ordered?: No Reason prophylaxis not ordered:: Treatment Not Indicated Patient Problems: Active and Suspected Problems TIA (transient ischemic attack) (Acute) vs a migraine equivalent Migraines (Suspected) Elevated blood pressure reading (Acute) No history of hypertension Hypokalemia (Acute) Dehydration (Acute) Grief reaction (Acute) 2 months ago Vertebral compression fracture (Acute) History of kyphoplasty (Acute) Dr. Albert 2 weeks ago Osteoporosis (Suspected) - Physical Exam Vitals/I&O's: Vital Signs Temp Pulse Resp BP Pulse Ox 98 F 77 16 150/95 H 96 12/02/19 16:24 12/02/19 18:30 12/02/19 18:30 12/02/19 18:30 12/02/19 18:30 Oxygen Delivery Method Room Air Weight: 151 lb 3.794 oz Body Mass Index (BMI) 23.6 Finger Stick Blood Glucose 99 General: Alert, Oriented x3, Cooperative, No apparent distress, Well developed, Well nourished HEENT: Atraumatic, PERRLA, EOMI, Normocephalic Oral: Dry Mucosa Neck: Supple, No JVD, Negative Carotid Bruits, No Nodes, No Nuchal Rigidity, Trachea Midline, - - Carotids had brisk upstroke and excellent pulse volume bilaterally Lungs: Clear to auscultation, Normal air movement Cardiovascular: Regular rate, Regular Rhythm, Normal S1, Normal S2, No murmurs, No rub noted, No Gallop Abdomen: Bowel Sounds Present, Soft, Non Tender, Non-Distended, - - No guarding with palpation Extremities: No clubbing, No cyanosis, No edema, Capillary Refill Less than 3 Seconds, No Calf Tenderness, Peripheral Pulses Normal Skin: No rashes, No breakdown Musculoskeletal: No Tenderness to Palpation of Joints or Extremities Neurological: Cranial nerves II-XII grossly intact, Neuro grossly intact Psych/Mental Status: Normal Affect, Appropriate Laboratory Results 12/02/19 16:30: WBC 5.4, RBC 4.40, Hgb 13.8, Hct 42.4, MCV 96.4, MCH 31.4, MCHC 32.5, RDW Std Deviation 49.6 H, RDW Coeff of Elizabeth 13.9, Plt Count 270, MPV 9.6, Immature Gran % (Auto) 0.400, Neut % (Auto) 67.7, Lymph % (Auto) 20.7, [place] % (Auto) 10.1 H, Eos % (Auto) 0.7, Baso % (Auto) 0.4, Absolute Neuts (auto) 3.7, Absolute Lymphs (auto) 1.12, Nucleated RBC % 0 12/02/19 16:30: PT 13.3, INR 1.0, APTT 27.1 12/02/19 16:30: Sodium 140, Potassium 3.4 L, Chloride 104, Carbon Dioxide 31.0, Anion Gap 5, BUN 32 H, Creatinine 0.84, Estim Creat Clear Calc 52.81, Est GFR (MDRD) Af Amer 84, Est GFR (MDRD) Non-Af 70, BUN/Creatinine Ratio 38.3 H, Glucose 110 H, Calcium 9.8, Troponin I < 0.015 12/02/19 16:51: POC Glucose 99 Assessment/Plan All Active Problems TIA (transient ischemic attack) (Acute) Elevated blood pressure reading (Acute) Hypokalemia (Acute) Dehydration (Acute) Grief reaction (Acute) Vertebral compression fracture (Acute) History of kyphoplasty (Acute) Impressions 1. Transient weakness and numbness of the left hand. Possible TIA versus classic migraine with focal neurologic deficit. Noncontrasted CT brain shows involutional changes only and the symptoms have completely resolved. Will obtain CTA of the neck and brain in the a.m. to rule out any significant arterial sclerosis especially in light of increased blood pressure and history of hyperlipidemia. 2. Elevated blood pressure with no history of hypertension. Suspect this is related to the recent passing of her and her recent increased anxiety. PRN labetalol has been ordered. We will continue to monitor. May require an antihypertensive going forward. 3. Dehydration 4. Hypokalemia 5. Recent kyphoplasty for vertebral compression fractures by Dr. Albert 6. Suspected osteoporosis 7. Hyperlipidemia on atorvastatin-we will continue Order set for TIA/CVA has been activated. Will order 325 mg p.o. of aspirin now and then 81 mg daily CTA of the head and neck in the a.m. Will defer MRI since the sx have completely resolved and her NIH is 0. Patient may benefit from grief counseling If she has not had a DEXA in the past she should have this and it can be ordered as an outpatient. Code Visit OBSV E&M: 00730 Initial observation care L3
[2019-12-02] MEDS: 0.9% Normal Saline 1,000 ML 100 ML IV (20:56)
[2019-12-02] MEDS: Acetaminophen 325 MG Tablet 650 MG PO (20:56)
[2019-12-02] MEDS: Aspirin 325 MG Tablet PO (20:56)
[2019-12-02] MEDS: 0.9% Saline Lock 10 ML Syringe IV (21:01)
[2019-12-03] VITALS (9 sets, daily range): BP systolic 118–150; BP diastolic 74–99; PULSE 67–99; RESP 16–17; TEMP 36.2–36.9; O2SAT 96–97
--- NOTE | 2019-12-03 05:55 | CT_ITS ---
STUDY: CTA HEAD AND NECK WITH CONTRAST REASON FOR EXAM: Female, 78 years old. TIA WITH HTN RADIATION DOSAGE (If Supplied By Facility): CTDIvol = ( 31.05 ) mGy, DLP = ( 1296.70 ) mGycm TECHNIQUE: CT angiography was performed with a multi-detector CT scanner. Data acquisition was obtained from the skull base through the vertex following intravenous administration of IV 100mL [id number]-[id number]. MIP images were reconstructed from the axial data set. Post-processing of the angiographic images was performed, with multiplanar reformation, and 3D reconstruction. Individualized dose optimization techniques were used for this CT. COMPARISON: Noncontrast CT scan brain 12/02/2019 FINDINGS: Normal bilateral petrous carotid arteries. There is minimal calcified plaque formation of the right cavernous carotid artery, without a cross-sectional luminal stenosis. There is minimal calcified plaque formation of the left cavernous carotid artery, without a cross-sectional luminal stenosis. Normal right A1 segments of the anterior cerebral artery. Normal left A1 segments of the anterior cerebral artery. Normal intact anterior communicating artery (ACOM). Normal bilateral A2 segments of the anterior cerebral arteries. Normal right M1 and M2 segments of the middle cerebral arteries, with a normal M1 bifurcation. Normal left M1 and M2 segments of the middle cerebral arteries, with a normal M1 bifurcation. Normal right posterior communicating artery (PCOM). Normal left posterior communicating artery (PCOM). Normal bilateral vertebral arteries. Normal basilar artery with a normal basilar bifurcation. The visualized bilateral superior cerebellar (SCA) arteries are normal. Normal bilateral P1, P2 and visualized P3 segments of the posterior cerebral arteries. There is no demonstrated aneurysm of the mary's ig[place] of [place]. There is no demonstrated acute abnormality of the visualized brain. AORTIC ARCH: There is atherosclerotic calcific plaque formation of the aortic arch and great vessels arising from the aortic arch, without a hemodynamically significant stenosis. There is a normal origin of the brachiocephalic, left common carotid, and left subclavian arteries. RIGHT CAROTID ARTERIES: There is atherosclerotic tortuous elongation of the right common carotid artery. There is mild atherosclerotic plaque formation, without narrowing of the right carotid bulb. Normal origin of the right internal carotid (ICA) artery without a hemodynamically significant stenosis. There is atherosclerotic tortuous elongation of the cervical portion of the right internal carotid artery. Normal origin of the right external carotid artery (ECA). LEFT CAROTID ARTERIES: There is atherosclerotic tortuous elongation of the left common carotid artery. There is minimal atherosclerotic plaque formation, without narrowing of the left carotid bulb. Normal origin of the left internal carotid (ICA) artery without a hemodynamically significant stenosis. There is atherosclerotic tortuous elongation of the cervical portion of the left internal carotid artery. Normal origin of the left external carotid artery (ECA). VERTEBRAL ARTERIES: There is enhancement within the bilateral vertebral arteries with a small right vertebral artery, and a dominant left vertebral artery. CT/CTA Head AND Neck W/ Contrast IMPRESSION: No evidence for stenosis, occlusion, aneurysm, or dissection. Electronically Signed: Carlos Conley MD at 6:30 EST , Service support ,
[2019-12-03 06:39] LABS: Phosphorus 3.5 mg/dL (2.5-4.9)
[2019-12-03 06:45] LABS: ALB/GLOB Ratio 1.2 RATIO (0.9-2.4); AST(SGOT) 15 U/L (15-37); Alanine Aminotransfer ALT/SGPT 21 U/L (13-56); Albumin, Serum 3.5 g/dL (3.2-5.0); Alkaline Phosphatase 100 U/L (45-117); Anion Gap 6 (5-15); BUN 26 mg/dL (7-18); Calcium,Total 8.7 mg/dL (8.5-10.1); Chloride 104 mmol/L (98-107); Cholesterol 186 mg/dL (200); Creatinine, Serum 0.67 mg/dL (0.55-1.02); EST Glomerular Filtration Rate 91 mL/min (>60); Est Glom Filt Rate - Afr Amer 110 mL/min (>60); Estimated Creatinine Clearance 44.36 ml/min; Globulin 2.9 g/dL (2.2-4.2); Glucose 88 mg/dL (74-106); High Density Lipoprotein 82 mg/dL; Magnesium 1.8 mg/dL (1.6-2.6); Potassium 3.5 mmol/L (3.5-5.1); Protein, Total 6.4 g/dL (6.4-8.2); Sodium Level 138 mmol/L (136-145); Triglycerides 106 mg/dL; Very Low Density Lipoprotein 21 mg/dL (5-40)
[2019-12-03] MEDS: 0.9% Normal Saline 1,000 ML 100 ML IV (07:16)
[2019-12-03] MEDS: Multivitamins,Ther W-Minerals Tablet 1 TABLET PO (08:03)
[2019-12-03] MEDS: Aspirin 81 MG TAB.CHEW PO (08:03)
[2019-12-03] MEDS: Pantoprazole Sodium 20 MG Tablet PO (09:34)
[2019-12-03] MEDS: Dicyclomine 10 MG Capsule PO (09:35)
[2019-12-03] MEDS: Naproxen 250 MG Tablet PO (09:35)
--- NOTE | 2019-12-03 13:18 | CASEMGMT ---
SW completed a PHQ 9 with patient as she may have had a TIA or Stroke. She scored a 1 which indicates minimal depression. Kenisha BURCH MSW
--- NOTE | 2019-12-03 13:20 | CASEMGMT ---
SW spoke with patient as her a few months ago. Her daughter was in the room. Patient states she is doing okay. She does not feel she needs any resources for counseling. She thanked KASSANDRA for checking in with her. Kenisha CHANDRA
--- NOTE | 2019-12-03 14:11 | MRI_ITS ---
STUDY: MRI BRAIN WITHOUT CONTRAST REASON FOR EXAM: Female, 78 years old. migraine, c/o L hand numbness 1 episode x 5 min TECHNIQUE: Standardized multiplanar fat and water weighted pulse sequences were obtained. COMPARISON: CT of the brain December 03, 2019 FINDINGS: Moderate atrophy and advanced periventricular white matter ischemic changes. Tiny old bilateral lacunar infarcts in the basal ganglia.. Chronic ischemic changes within the reji. . Normal thalami. There is no extra-axial fluid accumulation. Normal flow voids within the major intracranial circulation suggesting patency by spin echo criteria. Normal sella turcica, pituitary gland, infundibular stalk, optic chiasm and hypothalamus. Normal tectal plate and pineal gland. Normal midbrain, reji and medulla. Normal cerebellum. Normal basal cisterns. Normal bilateral temporal bones. Normal bilateral internal auditory canals. There are postsurgical changes of the orbits. There is mild mucosal thickening of the ethmoid air cells.. Normal calvarium and skull base. Normal visualized soft tissue structures. Normal visualized upper cervical spine. MRI/Brain without Contrast IMPRESSION: No evidence for acute infarct. Moderate atrophy and advanced periventricular white matter ischemic changes. 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 Chronic ischemic changes within the reji. Electronically Signed: Rex Thomas MD at 16:32 EST , Service support ,
--- NOTE | 2019-12-03 15:16 | CASEMGMT ---
Patient has a Healthcare Living Will and a Healthcare Power of Program Director/Air Personality. A copy of her Healthcare POA was printed from e-chart and placed in her paper chart. Kenisha BURCH MSW
--- NOTE | 2019-12-03 16:30 | PCM.PN.HOSP ---
Patient Problems: Active and Suspected Problems TIA (transient ischemic attack) (Acute) vs a migraine equivalent Migraines (Suspected) Elevated blood pressure reading (Acute) No history of hypertension Hypokalemia (Acute) Dehydration (Acute) Grief reaction (Acute) 2 months ago Vertebral compression fracture (Acute) History of kyphoplasty (Acute) Dr. Albert 2 weeks ago Osteoporosis (Suspected) Reason for Visit: left arm ataxia Subjective: Yesterday, she saw some floaters, then developed a headache and the left hand ataxia. Symptoms lasted about 10 minutes. Has had headaches infrequently, but never had hand numbness. Vitals/I&O's: Vital Signs Temp Pulse Resp BP Pulse Ox 36.8 C 97 16 121/74 H 97 12/03/19 12:00 12/03/19 15:36 12/03/19 12:00 12/03/19 12:00 12/03/19 12:00 Oxygen Delivery Method Room Air Weight: 62.6 kg Body Mass Index (BMI) 21.6 Finger Stick Blood Glucose 99 Orthostatic Vital Signs Start: 12/02/19 20:36 Freq: q24h Status: Active Protocol: Activity Type Activity Date Activity User E-Sign Co-Sign Detail Recorded Client Recorded Date Recorded By Document 12/03/19 04:00 AMH [id number] 12/03/19 04:31 AMH 12/03/19 04:00 Orthostatic Vitals Standing -Blood Pressure (90/60-120/80) 125/92 H -Extremity Use Right Arm -Pulse Rate (60-100) 87 Sitting -Blood Pressure (90/60-120/80) 150/99 H -Extremity Use Right Arm -Pulse Rate (60-100) 78 Lying -Blood Pressure (90/60-120/80) 118/78 -Extremity Use Right Arm -Pulse Rate (60-100) 68 Intake and Output for Last 24 Hours 12/01/19 12/02/19 12/03/19 23:59 23:59 23:59 Intake Total 3141.67 / 3141.67 Balance 3141.67 / 3141.67 General: Alert, No apparent distress HEENT: Atraumatic, EOMI, Normocephalic Oral: Moist Mucosa, No Gingival or Mucosal Lesions/ Ulcerations Neck: No Nodes, Trachea Midline Lungs: Clear to auscultation, Normal air movement, No rhonchi, No wheeze, No rales Cardiovascular: Regular rate, Regular Rhythm, Normal S1, Normal S2, No murmurs Abdomen: Bowel Sounds Present, Soft, Non Tender, Non-Distended, No Hepato-splenomegaly Extremities: No edema, No Calf Tenderness Skin: No rashes, No breakdown Musculoskeletal: No Tenderness to Palpation of Joints or Extremities, No Muscle Wasting Neurological: Cranial nerves II-XII grossly intact, Motor Exam 5/5 strength throughout, Coordination normal Psych/Mental Status: Normal Affect, Appropriate Laboratory Results 12/02/19 16:30: WBC 5.4, RBC 4.40, Hgb 13.8, Hct 42.4, MCV 96.4, MCH 31.4, MCHC 32.5, RDW Std Deviation 49.6 H, RDW Coeff of Elizabeth 13.9, Plt Count 270, MPV 9.6, Immature Gran % (Auto) 0.400, Neut % (Auto) 67.7, Lymph % (Auto) 20.7, [place] % (Auto) 10.1 H, Eos % (Auto) 0.7, Baso % (Auto) 0.4, Absolute Neuts (auto) 3.7, Absolute Lymphs (auto) 1.12, Nucleated RBC % 0 12/02/19 16:30: PT 13.3, INR 1.0, APTT 27.1 12/02/19 16:30: Sodium 140, Potassium 3.4 L, Chloride 104, Carbon Dioxide 31.0, Anion Gap 5, BUN 32 H, Creatinine 0.84, Estim Creat Clear Calc 52.81, Est GFR (MDRD) Af Amer 84, Est GFR (MDRD) Non-Af 70, BUN/Creatinine Ratio 38.3 H, Glucose 110 H, Calcium 9.8, Troponin I < 0.015 12/02/19 16:51: POC Glucose 99 12/02/19 21:30: Troponin I < 0.015 12/02/19 23:00: Troponin I < 0.015 12/03/19 05:20: Sodium 138, Potassium 3.5, Chloride 104, Carbon Dioxide 28.0, Anion Gap 6, BUN 26 H, Creatinine 0.67, Estim Creat Clear Calc 44.36, Est GFR (MDRD) Af Amer 110, Est GFR (MDRD) Non-Af 91, BUN/Creatinine Ratio 39.0 H, Glucose 88, Calcium 8.7, Magnesium 1.8, Total Bilirubin 0.50, AST 15, ALT 21, Alkaline Phosphatase 100, Total Protein 6.4, Albumin 3.5, Globulin 2.9, Albumin/Globulin Ratio 1.2, Triglycerides 106, Cholesterol 186, LDL Cholesterol 83, VLDL Cholesterol 21, HDL Cholesterol 82 12/03/19 05:20: Phosphorus 3.5 Current Medications Acetaminophen (Tylenol) 650 mg PO Q6H PRN PRN PRN Reason: Pain Score 1-10/Temp > 100.7 F Last Admin: 12/02/19 20:56 Dose: 650 mg Documented by: Al Hydroxide/Mg Hydroxide (Mylanta Ii) 30 ml PO Q6H PRN PRN PRN Reason: Gastric Burning Aspirin (Aspirin, Baby) 81 mg PO DAILY@0800 [facility] Last Admin: 12/03/19 08:03 Dose: 81 mg Documented by: Atorvastatin Calcium (Lipitor) 10 mg PO QHS [facility] Last Admin: 12/02/19 20:58 Dose: Not Given Documented by: Cholecalciferol (Vitamin D (25mcg)) 1,000 unit PO DAILY [facility] Last Admin: 12/03/19 09:35 Dose: 1,000 unit Documented by: Dicyclomine HCl (Bentyl) 10 mg PO DAILY [facility] Last Admin: 12/03/19 09:35 Dose: 10 mg Documented by: Labetalol HCl (Trandate) 10 mg IV Q4H PRN PRN PRN Reason: sys>[id number]> 90 Last Admin: 12/02/19 21:06 Dose: 10 mg Documented by: Magnesium Hydroxide (Milk Of Magnesia) 30 ml PO DAILY PRN PRN PRN Reason: Constipation Melatonin (Melatonin) 3 mg PO QHS PRN PRN PRN Reason: INSOMNIA Multivitamins/Minerals (Multivitamin With Minerals (Bkc)) 1 tablet PO DAILY@0800 [facility] Last Admin: 12/03/19 08:03 Dose: 1 tablet Documented by: Naproxen (Naprosyn) 250 mg PO DAILY [facility] Last Admin: 12/03/19 09:35 Dose: 250 mg Documented by: Ondansetron HCl (Zofran) 4 mg IV Q8H PRN PRN PRN Reason: NAUSEA/VOMITING Pantoprazole Sodium (Protonix) 20 mg PO DAILY [facility] Last Admin: 12/03/19 09:34 Dose: 20 mg Documented by: Potassium Chloride (K-Dur) 20 meq PO BIDCM JESSICA Stop: 12/03/19 17:01 Last Admin: 12/03/19 16:24 Dose: 20 meq Documented by: Sodium Chloride () 10 - 40 ml IV UD PRN PRN Reason: SALINE FLUSH Last Admin: 12/02/19 21:01 Dose: 10 ml Documented by: STROKE Vital Signs/Narrative: Vital Signs Pulse 12/03/19 15:36 97 Medical Necessity - Tobacco Use Smoking Status: Never smoker Tobacco Use: Non-smoker Assessment/Plan All Active Problems TIA (transient ischemic attack) (Acute) Elevated blood pressure reading (Acute) Hypokalemia (Acute) Dehydration (Acute) Grief reaction (Acute) Vertebral compression fracture (Acute) History of kyphoplasty (Acute) 1. left hand numbness etiology TIA v atypical migraine check MRI brain, if negative for CVA, then this may likely be an atypical migraine. if positive, then complete CVA work up and consult teleneurology. DW patient's dtr at bedside. Code Visit OBSV E&M: 02546 Subsequent observation care L2
--- NOTE | 2019-12-03 17:12 | DCINST_ITS ---
- Discharge Diagnoses Current Active Problems: Current Active and Chronic Problems TIA (transient ischemic attack) (Acute) vs a migraine equivalent Elevated blood pressure reading (Acute) No history of hypertension Hyperlipidemia (Chronic) Osteoarthritis (Chronic) Hypokalemia (Acute) Dehydration (Acute) Grief reaction (Acute) 2 months ago Vertebral compression fracture (Acute) History of kyphoplasty (Acute) Dr. Albert 2 weeks ago You will use the following diet at home:: No restrictions Your food should be the consistency of: Regular Your liquids should be the consistency of: Regular/Thin Discharge Activity: Return to Normal Activity Call your doctor if you observe: Numbness or Tingling Allergies/Adverse Reactions: Allergies amoxicillin Adverse Reaction (Verified 12/02/19 16:47) Unknown ibuprofen Adverse Reaction (Verified 12/02/19 16:47) Unknown loratadine [From Claritin] Adverse Reaction (Verified 12/02/19 16:47) Unknown pravastatin [From Pravachol] Adverse Reaction (Verified 12/02/19 16:47) Unknown sulfamethoxazole [From Septra] Adverse Reaction (Verified 12/02/19 16:47) Unknown trimethoprim [From Septra] Adverse Reaction (Verified 12/02/19 16:47) Unknown COMBID Adverse Reaction (Uncoded 12/02/19 16:47) Unknown Medications to take at Discharge Atorvastatin Calcium [Lipitor] 10 mg PO BREAKFAST 02/27/17 Dicyclomine HCl 10 mg PO DAILY 02/27/17 Omeprazole [Prilosec] 20 mg PO DAILY 02/27/17 Cholecalciferol (Vitamin D3) [Vitamin D3] 1,000 unit PO DAILY 03/16/18 Mv-Mn/Folic AC/Calcium/Vit K1 [Women's 50 Plus Daily Formula] 1 each PO DAILY 03/16/18 Naproxen Sodium [Aleve] 220 mg PO DAILY 03/16/18 Cranberry Fruit Extract [Cranberry] 500 mg PO DAILY 11/15/19 Acetaminophen [Tylenol Tablet] 500 mg PO Q4H PRN tablet 12/03/19 Aspirin [Aspirin, Baby] 81 mg PO DAILY@0800 tab.chew 12/03/19 Primary Care Physician: Otilio Gandhi MD [Primary Care Provider] - Within 2 Weeks Test Results: Test results from this visit will be discussed in further detail at your follow- up appointment, if applicable. Proposed Discharge Date: 12/03/19
--- NOTE | 2019-12-03 17:13 | DS.PCM_ITS ---
Discharge Date and Diagnosis - Problem List Patient Problems: Active and Suspected Problems TIA (transient ischemic attack) (Acute) vs a migraine equivalent Migraines (Suspected) Elevated blood pressure reading (Acute) No history of hypertension Hypokalemia (Acute) Dehydration (Acute) Grief reaction (Acute) 2 months ago Vertebral compression fracture (Acute) History of kyphoplasty (Acute) Dr. Albert 2 weeks ago Osteoporosis (Suspected) Date of Admission: 12/02/19 Date of Discharge: 12/03/19 - Primary Discharge Diagnosis Active and Suspected Problems Migraine with atypical symptoms - Secondary Discharge Diagnosis Chronic Problems Hyperlipidemia (Chronic) Osteoarthritis (Chronic) Hospital Course and Treatment Imaging Results: 12/03/19 14:11 MRI Brain [Brain without Contrast] [MRI] Urgent Clinical Impression(s) from Imaging Studies Brain CT 12/02/19 16:46 IMPRESSION: Chronic involutional changes of the brain. Electronically Signed: Bogdan Davis DO at 17:30 EST Tel , Service support , Chest X-Ray 12/02/19 16:50 IMPRESSION: No acute cardiopulmonary findings Electronically Signed: Sg Pugh at 17:50 EST Tel , Service support , Head/Neck CTA 12/03/19 05:55 IMPRESSION: No evidence for stenosis, occlusion, aneurysm, or dissection. Electronically Signed: Carlos Conley MD at 6:30 EST , Service support , Brain MRI 12/03/19 14:11 IMPRESSION: No evidence for acute infarct. Moderate atrophy and advanced periventricular white matter ischemic changes. 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 Chronic ischemic changes within the reji. Electronically Signed: Rex Thomas MD at 16:32 EST , Service support , Operations: None Summary of Care Provided: The patient is a 78 year old F with headache as well as numbness in her left upper extremity. Symptoms began after he started seeing floaters and then started developing a headache and then simultaneously had left hand numbness. Her symptoms lasted roughly 10 minutes and then resolved completely. Patient on rare occasion gets headaches where she will see some floaters and then developed a headache but never had any other somatic complaints such as this time. Patient was concerned and sought attention. Patient had a CT, CT angiogram and an MRI of the brain. No evidence of any stroke. The MRI, however showed some lacunar changes and some chronic ischemic changes to the reji. Patient cholesterol levels were fine. Patient recommended to start 81 mg of aspirin daily. Patient to follow-up with her primary care provider to see if she will need treatment for hypertension given the lacunar findings. Blood pressure was still a high when she presented here but has been fairly well controlled despite not receiving any treatment thereafter. Is feeling that the patient's symptoms, given their correlation with her headache was probably a component of an atypical migraine. Patient advised of this but still recommended to seek attention if she is developing any other kind of somatic complaints in the future. [] Patient Problems: Active and Suspected Problems TIA (transient ischemic attack) (Acute) vs a migraine equivalent Migraines (Suspected) Elevated blood pressure reading (Acute) No history of hypertension Hypokalemia (Acute) Dehydration (Acute) Grief reaction (Acute) 2 months ago Vertebral compression fracture (Acute) History of kyphoplasty (Acute) Dr. Albert 2 weeks ago Osteoporosis (Suspected) - Physical Exam Vitals/I&O's: Vital Signs Temp Pulse Resp BP Pulse Ox 36.8 C 74 16 143/88 H 96 12/03/19 16:00 12/03/19 16:00 12/03/19 16:00 12/03/19 16:00 12/03/19 16:00 Oxygen Delivery Method Room Air Weight: 62.6 kg Body Mass Index (BMI) 21.6 Finger Stick Blood Glucose 99 Orthostatic Vital Signs Start: 12/02/19 20:36 Freq: q24h Status: Active Protocol: Activity Type Activity Date Activity User E-Sign Co-Sign Detail Recorded Client Recorded Date Recorded By Document 12/03/19 04:00 AMH [id number] 12/03/19 04:31 AMH 12/03/19 04:00 Orthostatic Vitals Standing -Blood Pressure (90/60-120/80 mm Hg) 125/92 H -Extremity Use Right Arm -Pulse Rate (60-100 beats/min) 87 Sitting -Blood Pressure (90/60-120/80 mm Hg) 150/99 H -Extremity Use Right Arm -Pulse Rate (60-100 beats/min) 78 Lying -Blood Pressure (90/60-120/80 mm Hg) 118/78 -Extremity Use Right Arm -Pulse Rate (60-100 beats/min) 68 Intake and Output for Last 24 Hours 12/01/19 12/02/19 12/03/19 23:59 23:59 23:59 Intake Total 3141.67 / 3141.67 Balance 3141.67 / 3141.67 Laboratory Results 12/02/19 16:30: Sodium 140, Potassium 3.4 L, Chloride 104, Carbon Dioxide 31.0, Anion Gap 5, BUN 32 H, Creatinine 0.84, Estim Creat Clear Calc 52.81, Est GFR (MDRD) Af Amer 84, Est GFR (MDRD) Non-Af 70, BUN/Creatinine Ratio 38.3 H, Glucose 110 H, Calcium 9.8, Troponin I < 0.015 12/02/19 16:51: POC Glucose 99 12/02/19 21:30: Troponin I < 0.015 12/02/19 23:00: Troponin I < 0.015 12/03/19 05:20: Sodium 138, Potassium 3.5, Chloride 104, Carbon Dioxide 28.0, Anion Gap 6, BUN 26 H, Creatinine 0.67, Estim Creat Clear Calc 44.36, Est GFR (MDRD) Af Amer 110, Est GFR (MDRD) Non-Af 91, BUN/Creatinine Ratio 39.0 H, Glucose 88, Calcium 8.7, Magnesium 1.8, Total Bilirubin 0.50, AST 15, ALT 21, Alkaline Phosphatase 100, Total Protein 6.4, Albumin 3.5, Globulin 2.9, Albumin/Globulin Ratio 1.2, Triglycerides 106, Cholesterol 186, LDL Cholesterol 83, VLDL Cholesterol 21, HDL Cholesterol 82 12/03/19 05:20: Phosphorus 3.5 Current Medications Acetaminophen (Tylenol) 650 mg PO Q6H PRN PRN PRN Reason: Pain Score 1-10/Temp > 100.7 F Last Admin: 12/02/19 20:56 Dose: 650 mg Documented by: Al Hydroxide/Mg Hydroxide (Mylanta Ii) 30 ml PO Q6H PRN PRN PRN Reason: Gastric Burning Aspirin (Aspirin, Baby) 81 mg PO DAILY@0800 [facility] Last Admin: 12/03/19 08:03 Dose: 81 mg Documented by: Atorvastatin Calcium (Lipitor) 10 mg PO QHS [facility] Last Admin: 12/02/19 20:58 Dose: Not Given Documented by: Cholecalciferol (Vitamin D (25mcg)) 1,000 unit PO DAILY [facility] Last Admin: 12/03/19 09:35 Dose: 1,000 unit Documented by: Dicyclomine HCl (Bentyl) 10 mg PO DAILY [facility] Last Admin: 12/03/19 09:35 Dose: 10 mg Documented by: Labetalol HCl (Trandate) 10 mg IV Q4H PRN PRN PRN Reason: sys>170dias> 90 Last Admin: 12/02/19 21:06 Dose: 10 mg Documented by: Magnesium Hydroxide (Milk Of Magnesia) 30 ml PO DAILY PRN PRN PRN Reason: Constipation Melatonin (Melatonin) 3 mg PO QHS PRN PRN PRN Reason: INSOMNIA Multivitamins/Minerals (Multivitamin With Minerals (Bkc)) 1 tablet PO DAILY@0800 [facility] Last Admin: 12/03/19 08:03 Dose: 1 tablet Documented by: Naproxen (Naprosyn) 250 mg PO DAILY [facility] Last Admin: 12/03/19 09:35 Dose: 250 mg Documented by: Ondansetron HCl (Zofran) 4 mg IV Q8H PRN PRN PRN Reason: NAUSEA/VOMITING Pantoprazole Sodium (Protonix) 20 mg PO DAILY [facility] Last Admin: 12/03/19 09:34 Dose: 20 mg Documented by: Sodium Chloride () 10 - 40 ml IV UD PRN PRN Reason: SALINE FLUSH Last Admin: 12/02/19 21:01 Dose: 10 ml Documented by: Discharge Diet: No Restrictions Discharge Activity: Return to Normal Activity Call your doctor if you observe: Numbness or Tingling Home Medications: Medications to take at Discharge Atorvastatin Calcium [Lipitor] 10 mg PO BREAKFAST 02/27/17 Dicyclomine HCl 10 mg PO DAILY 02/27/17 Omeprazole [Prilosec] 20 mg PO DAILY 02/27/17 Cholecalciferol (Vitamin D3) [Vitamin D3] 1,000 unit PO DAILY 03/16/18 Mv-Mn/Folic AC/Calcium/Vit K1 [Women's 50 Plus Daily Formula] 1 each PO DAILY 03/16/18 Naproxen Sodium [Aleve] 220 mg PO DAILY 03/16/18 Cranberry Fruit Extract [Cranberry] 500 mg PO DAILY 11/15/19 Acetaminophen [Tylenol Tablet] 500 mg PO Q4H PRN tablet 12/03/19 Aspirin [Aspirin, Baby] 81 mg PO DAILY@0800 tab.chew 12/03/19 Primary Care Physician: Otilio Gandhi MD [Primary Care Provider] - Within 2 Weeks Disposition: Home Minutes spent on discharge:: 32 Patient Condition:: Good Medical Necessity - Tobacco Use Smoking Status: Never smoker Tobacco Use: Non-smoker Meaningful Use Info Meaningful Use Diagnoses (Choose all that apply): None applicable Code Visit OBSV E&M: 72144 Observation care discharge
== END 2019-12-03 17:13 | disposition home or self-care (01) ==
LOC: ED 16:54 → PCU 20:02
PROVIDERS: Admitting Provider Internal Medicine; Emergency Provider Physician Assistant Medical; PCP Family Medicine
DX: R20.0 Anesthesia of skin (principal); R51 Headache; I10 Essential (primary) hypertension; R20.2 Paresthesia of skin; E78.5 Hyperlipidemia, unspecified; R29.700 NIHSS score 0; M19.90 Unspecified osteoarthritis, unspecified site; E87.6 Hypokalemia; Z79.899 Other long term (current) drug therapy; E86.0 Dehydration
CPT/HCPCS: 36415; 70450; 70496; 70498; 70551; 71045; 80048; 80053; 80061; 82962; 83735; 84100; 84484; 85025; 85610; 85730; 93005; 94762; 96361; 96374; 97802; 99218; 99251; 99285; J7030; Q9967; A4216; G0378; G0463

== ENCOUNTER → 2019-12-12 13:05 | Outpatient (CLI) | payer MEDICARE, SELFPAY ==
[2019-12-02 20:39] VITALS: BMI 21.6
--- NOTE | 2019-12-12 13:13 | VDLE_ITS ---
Reason For Study: Pain/Swelling rt leg RIGHT LEFT GSV is normal. CFV is compressible, spontaneous, phasic, CFV is compressible, spontaneous, phasic, competent, and demonstrates normal competent and demonstrates normal augmentation. augmentation. FV is compressible, spontaneous, phasic, competent and demonstrates normal augmentation. POP V is compressible, spontaneous, phasic, competent and demonstrates normal augmentation. T/P Trunk is compressible. PTV is compressible. RT PerV is compressible. Acute deep vein thrombosis is noted in the right gastroc vein. Right soleus vein is compressible with rouleaux flow noted. Procedure Exam performed in department. A preliminary report was called and/or faxed to Suzie. Interpretation Summary Acute deep vein thrombosis is noted in the right gastrocnemius vein. The remainder of the right lower extremity deep venous system is patent and compressible. Valvular competence appears intact within the proximal deep venous system on the right . The right great saphenous vein appears patent and compressible segmentally. Rouleaux flow is noted in the right soleus vein. Ordering Physician: Yandy Sepulveda Referring Physician: Otilio Gandhi Performed By: Patricia Leslie RVT
== END ==
PROVIDERS: PCP Family Medicine; Referring Provider Family Medicine; Visit Provider Family Medicine
DX: M79.89 Other specified soft tissue disorders (principal); M79.604 Pain in right leg; M25.571 Pain in right ankle and joints of right foot; M25.561 Pain in right knee
CPT/HCPCS: 93971

== ENCOUNTER → 2020-04-29 09:52 | Outpatient (CLI) | payer MEDICARE, SELFPAY ==
[2019-12-02 20:39] VITALS: BMI 21.6
--- NOTE | 2020-04-29 10:03 | BD_ITS ---
STUDY: DUAL ENERGY X-RAY ABSORPTIOMETRY / DXA REASON FOR EXAM: Female, 79 years old. 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 COMPARISON: None. FINDINGS: Lumbar Spine (L1-L4): g/cm2 (0.923) / T-score (-2.1) / Z-score (-0.3) Findings are suggestive of osteopenia with a high fracture risk. Increased kyphosis. Prior vertebroplasty of the T12 vertebrae. Left Femur Total: g/cm2 (0.660) / T-score (-2.8) / Z-score (-0.7) Left Femoral Neck: g/cm2 (0.653) / T-score (-2.8) / Z-score (-0.6) Right Femur Total: g/cm2 (0.623) / T-score (-3.1) / Z-score (-1.0) Right Femoral Neck: g/cm2 (0.643) / T-score (-2.8) / Z-score (-0.7) BD/Dexa Bone Density Study IMPRESSION: The patient is considered osteoporotic as outlined below according to World [employer] Organization (WHO) criteria with a high fracture risk. Reference Information: The T-score is the number of standard deviations above or below the standard which is normal for young adults at their peak bone mineral density. The World Health Organization (WHO) interprets the T-scores as follows: Above -1 Normal bone density Between -1 and -2.5 Osteopenia Equal to / or below -2.5 Osteoporosis As a practical clinical guideline, osteopenia may be graded as follows: Mild -1 through -1.5 Moderate -1.6 through -2.0 Severe -2.1 through -2.4 The Z-score is the number of standard deviations above or below age-matched controls. A Z-score of less than -1.5 would be considered abnormal. References: 1. NIH Osteoporosis and Related Bone Diseases http://www.osteo.org 2. International Society for Clinical Densitometry http://www.iscd.org 3. National Osteoporosis Foundation http://www.nof.org Electronically Signed: Toby Amaya, at 10:38 EDT , Service support ,
== END ==
PROVIDERS: PCP Family Medicine; Referring Provider Family Medicine; Visit Provider Family Medicine
DX: M48.50XA Collapsed vertebra, not elsewhere classified, site unspecified, initial encounter for fracture (principal); M81.0 Age-related osteoporosis without current pathological fracture
CPT/HCPCS: 77080

== ENCOUNTER → 2020-07-28 10:44 | Outpatient (CLI) | payer MEDICARE, SELFPAY ==
[2019-12-02 20:39] VITALS: BMI 21.6
[2020-07-28 12:33] LABS: Absolute Lymphocyte Count 0.73 X10^3/uL (0.83-4.51); Absolute Neutrophil Count 3.4 X10^3/uL (2.0-7.7); Basophil# 0.02 X10^3/uL; Basophil% 0.4 % (0-1); Eosinophil# 0.07 X10^3/uL; Eosinophils% 1.5 % (0-5); Hematocrit 42.9 % (37-47); Hemoglobin 13.9 g/dL (12.0-15.0); Lymphocyte # 0.73 X10^3/ul (4.0); Lymphocyte % 15.5 % (19-41); Mean Corp Hgb Conc 32.4 g/dL (32-36); Mean Corpuscular Hgb 31.3 pg (27.0-32.0); Mean Corpuscular Volume 96.6 fL (81-99); Mean Platelet Vol. 10.3 fl (6.2-12.0); Monocyte# 0.48 X10^3/uL; Monocyte% 10.2 % (0-10); NRBC Flagged by Analyzer 0 % (0-5); Neutrophil # 3.41 X10^3/uL (2.7-7.7); Neutrophil % 72.2 % (47-70); Platelet Count 223 K/mm3 (150-450); RBC Distribution Width CV 13.8 % (11.6-14.6); RBC Distribution Width SD 48.9 fl (35.1-43.9); Red Blood Count 4.44 M/mm3 (4.2-5.4); White Blood Count 4.7 K/mm3 (4.4-11.0)
[2020-07-28 13:21] LABS: Anion Gap 5 (5-15); BUN 26 mg/dL (7-18); BUN/Creat Ratio 28.3 RATIO (10-20); Calcium,Total 9.5 mg/dL (8.5-10.1); Chloride 104 mmol/L (98-107); Cholesterol 216 mg/dL (200); Creatinine, Serum 0.92 mg/dL (0.55-1.02); EST Glomerular Filtration Rate 62 mL/min (>60); Est Glom Filt Rate - Afr Amer 75 mL/min (>60); Glucose 101 mg/dL (74-106); High Density Lipoprotein 91 mg/dL; Potassium 4.1 mmol/L (3.5-5.1); Sodium Level 139 mmol/L (136-145); T4 Free Direct 0.89 ng/dL (0.76-1.46); Thyroid Stim Hormone (TSH) 1.78 uIU/mL (0.358-3.74); Triglycerides 110 mg/dL; Very Low Density Lipoprotein 22 mg/dL (5-40)
== END ==
PROVIDERS: PCP Family Medicine; Visit Provider Family Medicine
DX: M81.0 Age-related osteoporosis without current pathological fracture (principal); I10 Essential (primary) hypertension; E78.5 Hyperlipidemia, unspecified
CPT/HCPCS: 36415; 80048; 80061; 84439; 84443; 85025

== ENCOUNTER → 2020-10-08 17:31 | Outpatient (CLI) | payer MEDICARE, SELFPAY ==
[2019-12-02 20:39] VITALS: BMI 21.6
== END ==
PROVIDERS: PCP Family Medicine; Referring Provider Family Medicine; Visit Provider Family Medicine
DX: U07.1 COVID-19 (principal); Z20.822 Contact with and (suspected) exposure to COVID-19
CPT/HCPCS: 87635; C9803; U0005; U0003

== ENCOUNTER → 2020-12-12 09:53 | Outpatient (CLI) | payer MEDICARE, SELFPAY ==
[2019-12-02 20:39] VITALS: BMI 21.6
[2020-12-12 12:31] LABS: Absolute Lymphocyte Count 0.81 X10^3/uL (0.83-4.51); Basophil# 0.04 X10^3/uL; Basophil% 0.7 % (0-1); Eosinophil# 0.06 X10^3/uL; Eosinophils% 1.1 % (0-5); Hematocrit 43.2 % (37-47); Hemoglobin 14.2 g/dL (12.0-15.0); Lymphocyte # 0.81 X10^3/ul (4.0); Lymphocyte % 15.2 % (19-41); Mean Corp Hgb Conc 32.9 g/dL (32-36); Mean Corpuscular Hgb 31.7 pg (27.0-32.0); Mean Corpuscular Volume 96.4 fL (81-99); Mean Platelet Vol. 10.4 fl (6.2-12.0); Monocyte# 0.45 X10^3/uL; Monocyte% 8.4 % (0-10); NRBC Flagged by Analyzer 0 % (0-5); Neutrophil # 3.96 X10^3/uL (2.7-7.7); Neutrophil % 74.2 % (47-70); Platelet Count 246 K/mm3 (150-450); RBC Distribution Width CV 14.3 % (11.6-14.6); RBC Distribution Width SD 51.2 fl (35.1-43.9); Red Blood Count 4.48 M/mm3 (4.2-5.4); White Blood Count 5.3 K/mm3 (4.4-11.0)
[2020-12-12 12:48] LABS: Vitamin D,25 Hydroxy 56.7 ng/mL
[2020-12-12 13:02] LABS: Anion Gap 8 (5-15); BUN 23 mg/dL (7-18); BUN/Creat Ratio 30.9 RATIO (10-20); Calcium,Total 9.4 mg/dL (8.5-10.1); Chloride 103 mmol/L (98-107); Creatinine, Serum 0.74 mg/dL (0.55-1.02); EST Glomerular Filtration Rate 79 mL/min (>60); Est Glom Filt Rate - Afr Amer 96 mL/min (>60); Glucose 91 mg/dL (74-106); Sodium Level 140 mmol/L (136-145); Thyroid Stim Hormone (TSH) 1.53 uIU/mL (0.358-3.74)
== END ==
PROVIDERS: PCP Family Medicine; Visit Provider Family Medicine
DX: I10 Essential (primary) hypertension (principal); M81.0 Age-related osteoporosis without current pathological fracture
CPT/HCPCS: 36415; 80048; 82306; 84443; 85025

== ENCOUNTER 2021-12-24 09:17 | Outpatient (CLI) | payer MEDICARE, SELFPAY ==
--- NOTE | 2021-12-24 09:20 | RAD_ITS ---
STUDY: X-RAY - RIGHT KNEE REASON FOR EXAM: Female, 81 years old. Pain after hyperextension injury. TECHNIQUE: 4 view(s) of the knee. COMPARISON: 03/16/2018. FINDINGS: Osteopenia. Moderate arthrosis of the medial compartment with osteophyte formation. Mild arthrosis of the lateral compartment. Lateral tilt and subluxation of the patella with severe arthrosis of the patellofemoral compartment. Small suprapatellar joint effusion. Vascular calcification. Chondrocalcinosis. 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 Small joint effusion. Electronically Signed: Roderick Simms MD at 11:08 EDT ,
== END 2021-12-24 23:59 | disposition home or self-care (01) ==
LOC: MTRAD 09:19
PROVIDERS: PCP Family Medicine; Referring Provider Family Medicine; Visit Provider Family Medicine
DX: M25.561 Pain in right knee (principal)
CPT/HCPCS: 73564

== ENCOUNTER → 2023-04-01 | Outpatient (CLI) | payer MEDICARE, SELFPAY ==
--- NOTE | 2023-04-01 12:20 | CT_ITS ---
PROCEDURE: CT RIGHT KNEE WITHOUT CONTRAST REASON FOR EXAM: Female, 82 years old. Preoperative planning for the MakoPlasty Robotic knee surgery. Knee pain. TECHNIQUE: Transaxial CT of the hip, knee and ankle were obtained. Coronal and sagittal reconstruction images of the knee were provided. Individualized dose optimization techniques were used for this CT. COMPARISON: None. FINDINGS: Standard protocol for the preoperative planning for the MakoPlasty robotic knee surgery was performed. Osteopenia with moderate arthrosis of the right hand, moderate to marked tricompartmental arthrosis of the right knee with osteophytes and mild arthrosis of the tibiotalar and subtalar joints.. CT/Extremity Lower without Contra IMPRESSION: Preoperative MakoPlasty Robotic knee surgical CT evaluation with findings as described above. Electronically Signed: Roderick Simms MD at 13:35 EDT ,
== END | disposition home or self-care (01) ==
PROVIDERS: PCP Nurse Practitioner Family; Visit Provider Specialist
DX: M21.161 Varus deformity, not elsewhere classified, right knee (principal)
CPT/HCPCS: 73700

== ENCOUNTER 2023-04-20 07:07 | Observation (INO) | payer MEDICARE, OTHER, SELFPAY ==
--- NOTE | 2023-03-28 12:35 | HP.PCM_ITS ---
History and Physical History and Physical? Patient Name: Abril Ryan : 1940 From:? MARCELA PETERSON PA-C? DATE OF SURGERY:? 04/20/2023 SCHEDULED PROCEDURE:? Right total knee arthroplasty HISTORY OF PRESENT ILLNESS: Preoperative history and physical exam was performed on March 28, 2023.? This is a 82-year-old female who has had ongoing pain since 2003 with her right knee.? She has had episodes of instability with the right knee.? She has pain which is aching, sharp, sore.? Pain is increased with going up and down stairs, sitting and walking.? She has difficulty with activities of daily living including getting dressed, housework and shopping.? Patient has had previous surgery on the right knee involving knee arthroscopy.? Patient has been using a cane and walker for ambulatory assistance.? She has had previous corticosteroid injection with temporary relief.? She has tried a knee sleeve which caused increased pain in the knee.? She has been using qjoj-tfa-ydelchp Aleve with minimal relief.? After failing conservative measures and discussing all treatment options with Dr. Bello Myers, the patient does wish to proceed with a right total knee arthroplasty.? We are obtaining surgical clearance from the primary care provider Sherlyn Nixon NP.? Patient has not had any preoperative lab work or EKG.? Testing will be ordered today.? Patient has listed medical history of hypertension and hypercholesterolemia.? Patient denies past history of DVT or pulmonary embolism but thinks she may have had a previous superficial thrombophlebitis.? Patient cannot recall officially.? We are reaching out to the primary care provider.? Patient currently denies any chest pain, shortness of breath, fevers chills or recent infections. REVIEW OF SYSTEMS: Review Of Systems: Constitutional: Denies change in appetite, fever and weight change. Cardiovasular: Denies chest pain, heart murmur and irregular heartbeat. Respiratory: Denies cough, pneumonia, shortness of breath, tuberculosis and wheezing. Gastrointestinal: Reports heartburn, but denies constipation, diarrhea, nausea, rectal itching, bloody stools and vomiting. Genitourinary: Denies incontinence. Musculoskeletal: Reports gait disturbance, leg swelling, pain, trouble walking and weakness. Skin: Reports history of shingles, but denies Raynaud's and tattoo. Neurological: Reports ambulatory dysfunction but denies dizziness, numbness/tingling and tremor. Psychiatric: Denies anxiety, insomnia and stress. Hematologic/Lymphatic: Denies anemia, bleeding/bruising tendency and past trans fusion. Reviewed, no changes. PAST MEDICAL HISTORY: Advance Care Plan: Other Directive, LIVING WILL Effective Date: 01/28/2022 Comments: MALINDA HANNON - DAUGHTER? Other Directive, POA Effective Date: 01/28/2022 Past Medical History: Medical Problems: Arthritis, High Blood Pressure, Osteoporosis, Hypercholesterolemia Accidents: Sports Related Injury Surgical Hx: Gallbladder, Bilat Ovaries Chondroplasty - (2004) RT KNEE thoracic fusion - (2019) [facility] Cataracts - (2020) LT EYE Anesthesia Complications: None - UPSET STOMACH Assistive Devices: Dentures, Glasses Reviewed and updated. SOCIAL HISTORY: Social History: Marital: .Occupation: Retired.Work Status: Retired.Hand Dominance: Right- handed. Personal Habits:? Cigarette Use: Never Smoked Cigarettes.Smokeless Tobacco: Never Used Smokeless Tobacco.E-Cigarette Use: Never used.Alcohol: Denies use.Drug Use: Denies Use.Enjoy Exercising: Daily. Reviewed and updated. VITALS: Ht: 65.5 Wt: 143lb Wt k.865 BMI: 23.4 BP: 150/88 Pulse: 81 Resp: 12 T: 97.9 T: 36.6C Pain Level: 1 O2SatR: 98 ALLERGIES: Ibuprofen Pravachol Septra Claritin Amoxil Combid? MEDICATIONS: Atorvastatin Calcium 10 mg 1po qday, Famotidine 40 mg 1po qday, Lisinopril 5 mg 1po qday, Dicyclomine HCL 10 mg 1poq day, Centrum Silver 50+Women 50+Women 1po qday, Vitamin D3 Support Bones? 1po qday, Cranberry 500 mg 1po qday, Aleve 220 mg 1 tablet by mouth once a day, Aspirin 81 mg 1 PO qdaily, Alendronate Sodium 70 mg 1po qday PRE-OP EXAM:? General appearance:NORMAL? ? ? Other: Eyes: Conjunctivae and lids: NORMAL? Pupils: ERR Ears, Nose, Mouth, and Throat: NORMAL? Other: Inspection of lips, teeth and gums: NORMAL? ?Other: Neck: Examination of neck: no masses noted. Respiratory: Assessment of respiratory effort: NORMAL? ?Other: ?Auscultation of lungs: clear to auscultation no wheezes, rhonchi or rales. Cardiovascular:? Auscultation of heart: regular rate and rhythm, no murmurs, gallops or rubs. PHYSICAL EXAMINATION: Patient does walk with an antalgic gait.? She has large effusion for the right knee.? Patient has tenderness to palpation along the medial joint line and minimal tenderness on the lateral joint line.? She complains of posterior knee pain.? Range of motion: Lacks 10 full extension to 118 flexion.? She has correctable varus alignment.? Crepitus with range of motion.? Stable to anterior/posterior drawer exam. IMAGING STUDIES: Previous x-rays of the right knee reveal varus alignment with medial joint space narrowing, subchondral sclerosis, osteophyte formation consistent with severe stage IV bone on bone osteoarthritis with bony erosion. IMPRESSION: 1.? Severe right knee osteoarthritis with varus deformity 2.? Hypertension 3.? Hypercholesterolemia PLAN: Dr. Bello Myers did discuss and review with the patient all treatment options including surgical versus nonsurgical options.? Patient does wish to proceed with the above-stated procedure.? Potential risks, benefits, and complications of the procedure were discussed in detail including but not limited to , infection, nerve and blood vessel damage, persistent pain, numbness, tingling, paresthesias, blood clot, pulmonary embolism, and requirement for possible further surgery.? The patient expressed full understanding and has no further questions for the doctor.? Patient does agree to proceed with the above-stated procedure and has signed the surgery consent form. POST-OP MEDICATION PLAN: DVT Prophylaxis: Aspirin 81 mg twice daily for 4 weeks postoperatively.? Patient denies past history of DVT or pulmonary embolism but thinks she may have had a superficial thrombophlebitis in the past.? We are checking with her primary care physician with regards to this. This dictation was created using voice recognition software. Phonetic and/or grammatical errors may exist. ___? I have re-examined the patient.? There are no clinical changes since date of exam. ___? See progress notes for changes. ___? Dictated on admission Date: ? ? ?Time: Signature:
--- NOTE | 2023-03-30 11:04 | EKG12_ITS ---
Test Reason : PRE-OP Blood Pressure : / mmHG Vent. Rate : 084 BPM Atrial Rate : 084 BPM P-R Int : 154 ms QRS Dur : 088 ms QT Int : 384 ms P-R-T Axes : 028 -34 -10 degrees QTc Int : 453 ms Normal sinus rhythm Left axis deviation Septal infarct , age undetermined Abnormal ECG Confirmed by ABBE FIORE, ANAT ([id number]), associate entertainment editor DIPAK AMANDA ([id number]) on 04/04/2023 12:58:45 PM Referred By: RICARDO Confirmed By:ANAT MCADAMS MD
[2023-04-01 13:22] LABS: Absolute Lymphocyte Count 1.08 X10^3/uL (0.83-4.51); Absolute Neutrophil Count 3.9 X10^3/uL (2.0-7.7); Basophil# 0.03 X10^3/uL; Basophil% 0.5 % (0-1); Eosinophil# 0.08 X10^3/uL; Eosinophils% 1.5 % (0-5); Hematocrit 41.6 % (37-47); Hemoglobin 13.5 g/dL (12.0-15.0); Lymphocyte # 1.08 X10^3/ul (0.83-4.51); Lymphocyte % 19.6 % (19-41); Mean Corp Hgb Conc 32.5 g/dL (32-36); Mean Corpuscular Hgb 31.3 pg (27.0-32.0); Mean Corpuscular Volume 96.5 fL (81-99); Mean Platelet Vol. 9.9 fl (6.2-12.0); Monocyte# 0.46 X10^3/uL; Monocyte% 8.3 % (0-10); NRBC Flagged by Analyzer 0 % (0-5); Neutrophil # 3.85 X10^3/uL (2.7-7.7); Neutrophil % 69.9 % (47-70); Platelet Count 229 K/mm3 (150-450); RBC Distribution Width CV 13.9 % (11.6-14.6); RBC Distribution Width SD 49.3 fl (35.1-43.9); Red Blood Count 4.31 M/mm3 (4.2-5.4); White Blood Count 5.5 K/mm3 (4.4-11.0)
[2023-04-01 13:52] LABS: Anion Gap 5 (5-15); BUN 26 mg/dL (7-18); BUN/Creat Ratio 31.1 RATIO (10-20); Calcium,Total 9.1 mg/dL (8.5-10.1); Chloride 104 mmol/L (98-107); Creatinine, Serum 0.84 mg/dL (0.55-1.02); EST Glomerular Filtration Rate 69 mL/min (>60); Est Glom Filt Rate - Afr Amer 84 mL/min (>60); Glucose 91 mg/dL (74-106); Potassium 3.7 mmol/L (3.5-5.1); Sodium Level 139 mmol/L (136-145)
[2023-04-20] VITALS (15 sets, daily range): BP systolic 108–146; BP diastolic 67–97; PULSE 76–97; RESP 16–18; TEMP 36.1–36.8; O2SAT 94–100; BMI 23.3
[2023-04-20] MEDS: Lactated Ringers 1,000 ML 999 ML IV ×2 (05:50→09:40)
[2023-04-20] MEDS: Magnesium 1 GM over 15 mins IV (05:55)
[2023-04-20] MEDS: Acetaminophen 500 MG Tablet 1000 MG PO ×3 (06:30→21:28)
[2023-04-20] MEDS: Celecoxib 200 MG Capsule 400 MG PO (06:30)
[2023-04-20] MEDS: Gabapentin 600 MG Tablet PO (06:30)
[2023-04-20 06:38] LABS: Bedside Glucose 91 mg/dL (74-106)
--- NOTE | 2023-04-20 07:05 | PCM.OPRPT ---
Report of Operation Date of Procedure: 04/20/23 Pre-Operative Diagnosis: Right knee primary osteoarthritis Post-Operative Diagnosis: Right knee primary osteoarthritis Surgery/Procedure Performed:: Right minimally invasive robotic total knee replacement Description of Surgical Findings:: Stable knee with good patella tracking Surgeon: Bello Myers cook cold meat: Ashok Dyer Type of Anesthesia: General Anesthesiologist: Panda Melendez Special Medications: 2 g Ancef, 1 g TXA at incision, 1 g TXA closure, 10 mg Decadron, joint cocktail (5 mg Duramorph, 30 mL of 0.5% Ropivicaine, 1000 units of epinephrine, 30 mg of Toradol) Specimen's removed: Bony cuts Estimated Blood Loss (mL): 75 Fluids Replaced: 1200 mL crystalloid Description of Procedure: Implants used: 1. Regent size 4 triathlon cruciate retaining distal femoral press-fit component 2. Regent size 5 press-fit tritanium tibial baseplate 3. Dorys X3 10 mm CS polyethylene 4. Regent X3 35 mm asymmetric patella Brief history operative indications: 82-year-old f with history of right knee osteoarthritis with radiographic findings with loss of joint space, osteophyte formation and subchondral sclerosis. Failed conservative measures as mentioned in the H&P. Discussion of total knee arthroplasty as well as risk and benefits were discussed the patient including but not limited to blood loss, DVTs, PEs, neurovascular damage, general risk of anesthesia including loss of life, and stiffness or instability were discussed with patient. Patient demonstrated understanding and was able to sign informed consent. Procedure: On the date of procedure patient's right lower extremity was marked in the preoperative area. The patient was then taken back to the operating room where the patient was placed on the table in the supine position. All bony prominences were identified a well-padded. Anesthesia assumed control of the C-spine and airway and remained controlled throughout the remainder of the procedure. A tourniquet was placed on the right upper thigh and the leg was prepped in a sterile fashion. The surgeon then scrubbed at this time .Upon reentering the room right lower extremity was draped in a standard orthopedic fashion. A timeout was then called and everyone agreed upon the side, the site, the procedure to be performed, patient's identity and antibiotics given. Esmarch bandage was used to exsanguinate the extremity and the tourniquet was placed up to 250 mmHg with the knee in flexion. A midline skin incision was made and sharp dissection was taken down through skin subcutaneous tissue and fat. The standard medial parapatellar incision was made and the patella was subluxed laterally. An Appropriate deep MCL release was done and the fat pad was resected. Our attention was then directed to the patella. The patella was everted and a flat resection was made. The knee was then flexed up in 2 femoral pins were placed inside the incision and 2 tibial pins were placed outside the incision in the medial tibia bicortically. Once this was completed the 2 checkpoints in the femur and tibia were placed. Knee was then flexed up and the bony landmarks were registered. Once this was completed knee was taken through range of motion and manually stressed allowing us to a plan for an appropriate tibial cut. The robotic arm was brought into the field sterilely and checkpoint and saw were registered. Based on the patient's deformity the tibial cut was made neutral to the tibial axis. At this time the tensioner was then placed in the joint and ligament tension was checked at 90 degrees and full extension. Based on the patient's ligamentous tension appropriate adjustments were made to the operative plan and ligament releases were done. Once we were happy with our operative plan with balanced flexion and extension gaps our attention was directed to the femur. The robot was brought into the field sterilely and registered. Posterior condylar cuts, anterior chamfer cuts and anterior cuts were appropriately made for a size 4 femur. When these were completed the saws were switched out in the distal femoral and posterior chamfer cuts were made. Protecting the soft tissue throughout this time. A size 5 tibial base plate was selected. the knee was flexed to 90 degrees and the soft tissues and posterior osteophytes were removed from the joint. 40 cc of the periarticular injection was injected into the posterior medial corner of the joint. The appropriate trials were then placed on the femur and tibia. A trial polyethylene was trialed to ensure proper balancing and stability of the knee. The appropriate tibial internal rotation was then marked with a bovie. Our attention was then directed to the patella. The lug holes were drilled and the patella trial was placed. Patellar tracking was checked and deemed appropriate. Once we were happy lug holes were drilled for the femur and trial components were removed. the tibia was subluxed and pinned into place and the keel was punched and drilled appropriately. Final components were verified and opened, and cement was mixed in a vacuum. [employer] Simplex cement was used. The wound was copiously irrigated with normal saline. When the cement was ready the components were impacted into place starting with the tibia, femur and finally the patella. The patella did have tenuous fixation so we did cement the patella. The trial poly component was placed and the knee was placed in full extension. All excess cement was removed in the process. Once the cement had cured the tracking, alignment and balance were verified and a size 10 mm CS polyethylene component was placed. Once the final components were placed a 3-minute dilute Betadine lavage was performed followed by an Irrisept lavage was performed and the wound was copiously irrigated with normal saline solution and the periarticular injection was given. The wound was closed in a layer reyes fashion using #1 vicryl interrupted sutures for the arthrotomy, 2-0 interrupted Vicryl suture for the subcuticular layer and thomas for final skin closure. A sterile compressive dressing was then placed. The patient was then awakened from anesthesia, transferred to the [facility] and transferred to the PACU for recovery. Post op plan DVT ppx: Xarelto d/t previous VTE, thigh high compression stockings Follow up: in office in 2 weeks for wound check PT: to start POD #0 at hospital, outpatient PT should be arranged. My physician switchboard operator assistant was a vital part of this case. He was important in appropriate retraction during the case, and protection of soft tissues during bony cuts. His intimate knowledge of the case and my steps aided in safe and expedient completion of the procedure as well as appropriate position of the leg during the case. He was also vital in assisting with closure under my direct supervision. Due to the complexity of this case robotic arm was used to assist in the surgery to improve accuracy and clinical outcomes. Complications No intraoperative complications Admit VTE Documentation VTE Present on Admission: No VTE Mechan Device Prophylaxis: SCD's and Thigh High MARY BETH Hose VTE Pharm Prophylaxis ordered?: Yes
--- NOTE | 2023-04-20 07:30 | KNEE_PTH ---
PATIENT: PAULIE BARRIOS LOC: [facility] U#:[id number] AGE/SX: 82/F ROOM: KS312 RE04/20/[address]: Dr. Bello Myers MD : 1940 BED: 1 DIS: 04/21/2023 SPEC #: [id number] RECD: 04/20/23 14:04 STATUS: DION CAREY #: [id number] JUAN CARLOS: 04/20/23 07:[address]: Bello Myers DEPT: SURGICAL PATHOLOGY RECD BY: Eryn Patel ENTERED: 04/21/23 10:00 SP TYPE: TOTAL KNEE OTHR DR: DO Sherlyn Das, OSTEOLOGIST-C Tissues: Knee, NOS Procedures: Decalcification bone/plaque Surgery Specimen Level IV HEADER OPERATION: Robotic assisted right total knee arthroplasty PRE-OP DIAGNOSIS: Severe right knee osteoarthritis with varus deformity TISSUE SUBMITTED: Debrided bone and tissue right knee MICROSCOPIC DIAGNOSIS Bone and tissue, right knee, total knee replacement/resection: Pieces of bone with degenerative osteoarthritic changes. Fibroadipose tissue, fibroconnective tissue and reactive synovial tissue. Focal changes consistent with pseudogout. LUCÍA:bunny 04/25/2023 MICROSCOPIC DESCRIPTION Slides are reviewed. GROSS DESCRIPTION Received is one container designated bone and soft tissue right knee. The specimen consists of multiple fragments of hill-yellow bone measuring in aggregate 9.0 x 9.0 x 4.0 cm. Also in the specimen container are multiple fragments of yellow-white soft tissue measuring in aggregate 8.0 x 7.0 x 3.0 cm. A number of bony fragments contain articular surfaces consistent with tibial plateau and femoral condyle and displaying prominent osteophyte formation, eburnation and bone erosion. Soft tissue and bone also shows chalky white deposits. Preschool Education Director sections are submitted in two cassettes as follows: 1 - soft tissue, 2 - bone after decalcification. / LUCÍA:bunny 04/21/2023 TC:5 CPT: 23613, 00640
[2023-04-20] MEDS: Cefazolin 2 GM in 0.9% Normal Saline 100 ML IV ×2 (07:33→18:58)
[2023-04-20] MEDS: TXA 1000mg in NS100 100ml (IVPB at Incision) 660 MG IV (07:43)
[2023-04-20] MEDS: dexAMETHasone 10 MG/ML Vial IV (07:43)
[2023-04-20] MEDS: TXA 1000mg in NS100 100ml (IVPB at Closure) 660 MG IV (08:24)
[2023-04-20] MEDS: JPS (Morphine 10mg/ml) OPERA.SITE (08:48)
--- NOTE | 2023-04-20 09:55 | RAD_ITS ---
INDICATION: Post op -- AP and Lateral x-ray of operative knee in PACU EXAMINATION/TECHNIQUE: X-RAY - RIGHT XR Knee 1 or 2 Views 2 VIEWS COMPARISON: 4 views of the right knee December 25, 2023 FINDINGS: SOFT TISSUES: Gas and fluid are present in the peripatellar bursa. Mild anterior soft tissue swelling. Moderate atherosclerotic calcific plaquing of the visualized femoropopliteal and tibioperoneal arterial segments again noted. BONES/JOINTS: Patient has undergone knee arthroplasty. Metal prostheses are seen overlying the femoral condyles, tibial plateau, and posterior aspect of the patella. No acute fracture or subluxation. No sclerotic or destructive changes observed. RAD/Knee 1 or 2 Views IMPRESSION: Status post right total knee arthroplasty. Electronically Signed: Jack Pérez MD at 10:16 EDT Reading Location ID and State: [id number] / Unknown , Service support ,
[2023-04-20] MEDS: Lactated Ringers 1,000 ML 125 ML IV (10:33)
[2023-04-20] MEDS: Lactated Ringers 1,000 ML 15 ML IV ×2 (11:48→21:17)
[2023-04-20] MEDS: Cefazolin 1 GM/50 ML BAG IV ×2 (14:40→22:53)
[2023-04-20] MEDS: Ondansetron 4 MG/2 ML Vial IV (14:56)
--- NOTE | 2023-04-20 15:24 | PCM.PN.HOSP ---
Reason for Visit Reason for Visit: Right knee osteoarthritis Subjective Subjective Patient is an 82-year-old white female who presented to [facility] on 04/20/2023 for an elective total right knee arthroplasty. She has been having ongoing issues with pain since 2013 stability. She reported pain that is aching, sharp, and sore in nature and has had difficulty with activities of daily living and independent activities of daily living. She had previous surgery on this knee involving a knee arthroscopy previously. She is utilizing a cane and walker as an assistive device. She had previous corticosteroid injection with temporary relief and had tried a knee sleeve as an outpatient due to increased pain but this provided no relief and actually made her symptoms worse. She had been using lgbq-vpj-uqzrwih Aleve with minimal relief as well. Since she failed conservative management she opted for a right total knee arthroplasty. Past medical history includes osteoarthritis, hypertension, osteo porosis, hyperlipidemia, GERD, history of migraine. We have been asked to see the patient postoperatively for medical management. Objective Data Objective Data Vital Signs: Vital Signs Temp Pulse Resp BP Pulse Ox O2 Del Method O2 Flow Rate 98.0 F 84 16 122/72 H 96 Nasal Cannula 4 04/20/23 13:18 04/20/23 13:18 04/20/23 13:18 04/20/23 13:18 04/20/23 14:09 04/20/23 13:18 04/20/23 14:40 Oxygen Flow Rate (L/min) 4 Oxygen Delivery Method Nasal Cannula Weight: 63.5 kg Body Mass Index (BMI) 23.3 Intake & Output: Intake and Output for Last 24 Hours 04/18/23 04/19/23 04/20/23 23:59 23:59 23:59 Intake Total 2582 / 2582 Output Total 200 / 200 Balance 2382 / 2382 Lab / Micro Data 04/01/23 12:45 04/01/23 12:45 Labs: Laboratory Results - last 24 hr 04/20/23 06:00: POC Glucose 91 Micro: Microbiology 04/01/23 12:45 Swab (Method) Nasal Screen MRSA/MSSA - Final Radiography Diagnostic Testing: Radiology Impression Knee X-Ray 04/20/23 09:55 IMPRESSION: Status post right total knee arthroplasty. Electronically Signed: Jack Pérez MD at 10:16 EDT Reading Location ID and State: [id number] / Unknown , Service support , Physical Exam Const alert, oriented x3, no apparent distress, average body habitus, healthy appearing and well nourished Constitutional Narrative: Elderly white female, lying in bed, appears comfortable and nontoxic, resting but awakens easily, appears younger than stated age HEENT head/scalp atraumatic and moist oral mucous membranes HEENT Narrative: Mallampati 2, dentures in place, no thrush Head and Scalp: normocephalic Resp normal respiratory effort, no retractions, no use of accessory muscles and clear to auscultation bilaterally Auscultation: Negative for rales, rhonchi or wheezes Cardio regular rate, regular rhythm, S1 normal heart sound, S2 normal heart sound, no murmurs, no rub, no gallops and no clicks GI normal to inspection, nondistended, normoactive bowel sounds, soft to palpation and non-tender Extremity no clubbing, cyanosis or edema Extremity Narrative: Polar ice in place on right knee, MARY BETH hose bilaterally, pedal pulses are 2+ Neuro oriented x3 and no focal motor deficits Speech: speech normal Psych affect normal Psych Narrative: Extremely pleasant, interacts appropriately Assessment & Plan Assessment/Plan (1) Osteoarthritis of right knee: PLAN: Plan Osteoarthritis of the right knee -Postop day 0 total knee arthroplasty -Management per primary team -PT/OT consultation -Recommend bowel regimen Hypertension -Continue home lisinopril 5 mg daily Hyperlipidemia -Continue home atorvastatin 10 mg daily Osteoporosis -Continue vitamin D and calcium supplementation -Restart alendronate at discharge History of migraine headaches -No current issues GERD -Continue H2 jessica DVT prophylaxis -Per primary service Charges/Coding Visit Charges Inpatient E&M: 10380 Subs Hosp L2
--- NOTE | 2023-04-20 17:26 | PCM.PN.ORT ---
Subjective Subjective Patient is sitting in bed doing well. She was able to take food earlier today. Upon review of her x-rays it was noted that a portion of the patella clamp remains in the knee. Patient reports being comfortable at this time. Objective Data Objective Data Vital Signs: Vital Signs Temp Pulse Resp BP Pulse Ox O2 Del Method O2 Flow Rate 98.3 F 85 16 126/72 H 94 Nasal Cannula 4 04/20/23 15:18 04/20/23 15:18 04/20/23 15:18 04/20/23 15:18 04/20/23 15:18 04/20/23 16:16 04/20/23 16:16 Oxygen Flow Rate (L/min) 4 Oxygen Delivery Method Nasal Cannula Weight: 139 lb 15.896 oz Body Mass Index (BMI) 23.3 Intake & Output: Intake and Output for Last 24 Hours 04/18/23 04/19/23 04/20/23 23:59 23:59 23:59 Intake Total 2582 / 2582 Output Total 200 / 200 Balance 2382 / 2382 Lab / Micro Data Attestation: I reviewed the patient's lab results. 04/01/23 12:45 04/01/23 12:45 Labs: Laboratory Results - last 24 hr 04/20/23 06:00: POC Glucose 91 Micro: Microbiology 04/01/23 12:45 Swab (Method) Nasal Screen MRSA/MSSA - Final Radiography Diagnostic Testing: Radiology Impression Knee X-Ray 04/20/23 09:55 IMPRESSION: Status post right total knee arthroplasty. Electronically Signed: Jack Pérez MD at 10:16 EDT Reading Location ID and State: [facility] / Unknown , Service support , X-rays were reviewed personally, there is a shadow deep to the patellar implant consistent with a plastic patella clamp used for compressing the patella. Physical Exam Narrative Right lower extremity is neurovascular intact. Dressing is in place. No excessive swelling. Assessment & Plan Assessment/Plan (1) History of total right knee replacement: PLAN: Postop day 0 right total knee replacement. Postoperative x-rays reveal a portion of the patellar clamp or compressing the patella remains. I discussed these findings with the patient. I discussed that it would be important for us to remove this surgically. We discussed the surgical procedure would be opening the skin and arthrotomy removing this washing out the wound and reclosing the wound. Additional risks include the risk of a second round of anesthesia today as well as risk of infection after opening the wound. Other risks of total knee replacement remain including blood loss, DVTs, PEs, nervous damage. Patient demonstrates an understanding and is agreeable to proceed with removal of the foreign body today. [facility] Office:
--- NOTE | 2023-04-20 17:47 | NURSING ---
pt down to pacu pre op to be taken back to surgery assited pt with bedpan- voided - venita care done anesthesia talking with pt
--- NOTE | 2023-04-20 20:04 | OP.PCM_ITS ---
Report of Operation Date of Procedure: 04/20/23 Pre-Operative Diagnosis: Retained foreign body right total knee Post-Operative Diagnosis: Retained foreign body right total knee Surgery/Procedure Performed:: Open arthrotomy with removal of foreign body right total knee Description of Surgical Findings:: Foreign body appreciated removed in its entirety Surgeon: Bello Myers boring mill set up operator: None Type of Anesthesia: General Anesthesiologist: Miles Masterson Special Medications: 2 g Ancef Estimated Blood Loss (mL): 20 Fluids Replaced: 800 mL crystalloid Description of Procedure: On the day of the procedure patient was seen and evaluated in her bed on the floor. We went over the evidence of the retained foreign body. Discussed as documented in my orthopedic progress note. After patient was given time to assess risk benefits we also discussed with the family. Patient was given time to discuss with her family member. All parties were in agreement to proceed. Right lower extremity markings were again verified. Patient was then taken back to the operating room and transferred the table in the supine position. Anesthesia assumed control of the C-spine and airway and remained in control of the C-spine throughout the remainder of the procedure. The LMA was placed and a tourniquet was placed in the right lower extremity. All bony prominences were identified well-padded and sutures were removed. The right lower extremity was prepped in a sterile fashion using Betadine scrub due to the recent skin incision. Surgeon then scrubbed and upon reentering the room the right lower extremity was draped in a standard orthopedic fashion. Timeout was called and everyone agreed upon the side, the site, the procedure to be performed, patient's identity and antibiotics given. At this time the incision was carefully manipulated and scalpel was used to cut the previous 2-0 sutures. Suture tails were removed and we were able to identify the arthrotomy. #1 Vicryl arthrotomy repair was then removed handling the tissues carefully. Once this was done we are able to identify the foreign body in the wound. Foreign body was removed. The wound was then copiously irrigated out with 6 L of normal saline. Hunt through 6 L normal saline a 3-minute dilute Betadine lavage was performed care home through the last half a 1 minute chlorhexidine lavage was performed. Once the full amount of lavage was taken to the wound the wound was again explored and the knee was taken through range of motion. Knee remained stable with good patella tracking. At this time the wound was closed in a layered reyes fashion. #1 Vicryl was used for arthrotomy closure using interrupted at the patella and running proximally and distally. Skin was closed with 2-0 Vicryl and final skin closure was done with 2-0 nylon mattress sutures. Silverlon dressing was placed. Dressings were again placed over the previous pin sites for the robot. Negro bandage was placed. Patient was awakened by anesthesia and transferred back to the recovery room for recovery. Postop plan: We will follow regular total knee postoperative plan as mentioned in her original operative note. Patient will continue on her postoperative 24- hour course of antibiotics. Complications No intraoperative complications were appreciated. Admit VTE Documentation VTE Present on Admission: No VTE Mechan Device Prophylaxis: SCD's VTE Pharm Prophylaxis ordered?: Yes
--- NOTE | 2023-04-20 20:20 | RAD_ITS ---
STUDY: XR Knee 1 or 2 Views 04/20/2023 8:30 PM REASON FOR EXAM: Female, 82 years old. post op -- AP and Lateral xray of operative knee in PACU TECHNIQUE: XR Knee 2 Views RIGHT COMPARISON: None FINDINGS: There is no fracture or dislocation. There is anatomic alignment. Total knee arthroplasty. Soft tissue edema. Skin thomas are seen along the anterior midline aspect of the mid femur. There is an air-fluid level seen in the suprapatellar region. Joint space is preserved. Subcutaneous air is noted. There are atherosclerotic vascular calcifications. RAD/Knee 1 or 2 Views IMPRESSION: Successful total knee arthroplasty. Electronically Signed: Franklyn Hart MD at 20:32 EDT Reading Location ID and State: [facility] / [place] , Service support ,
[2023-04-20] MEDS: Senna/Docusate Sodium 1 Tablet 2 TABLET PO (21:28)
[2023-04-21 00:37] VITALS: BP 123/85; PULSE 77; RESP 16; TEMP 36.6; O2SAT 95
[2023-04-21 05:07] VITALS: BP 135/86; PULSE 83; RESP 16; TEMP 36.6; O2SAT 97
[2023-04-21 06:19] LABS: Hematocrit 34.3 % (37-47); Hemoglobin 11.1 g/dL (12.0-15.0); Mean Corp Hgb Conc 32.4 g/dL (32-36); Mean Corpuscular Hgb 31.4 pg (27.0-32.0); Mean Corpuscular Volume 96.9 fL (81-99); Mean Platelet Vol. 9.5 fl (6.2-12.0); Platelet Count 180 K/mm3 (150-450); RBC Distribution Width CV 14.1 % (11.6-14.6); RBC Distribution Width SD 50.2 fl (35.1-43.9); Red Blood Count 3.54 M/mm3 (4.2-5.4); White Blood Count 10.2 K/mm3 (4.4-11.0)
[2023-04-21] MEDS: Acetaminophen 500 MG Tablet 1000 MG PO (06:30)
[2023-04-21] MEDS: Rivaroxaban 10 MG Tablet PO (06:30)
[2023-04-21] MEDS: Dicyclomine 10 MG Capsule PO (06:33)
[2023-04-21 06:43] LABS: Anion Gap 6 (5-15); BUN 18 mg/dL (7-18); BUN/Creat Ratio 21.7 RATIO (10-20); Calcium,Total 8.6 mg/dL (8.5-10.1); Chloride 105 mmol/L (98-107); Creatinine, Serum 0.83 mg/dL (0.55-1.02); EST Glomerular Filtration Rate 70 mL/min (>60); Est Glom Filt Rate - Afr Amer 84 mL/min (>60); Estimated Creatinine Clearance 46.21 ml/min; Glucose 94 mg/dL (74-106); Sodium Level 139 mmol/L (136-145)
[2023-04-21] MEDS: Cholecalciferol (VIT D3) 25 MCG TABLET (1,000 UNITS) PO (08:15)
[2023-04-21] MEDS: Famotidine 20 MG Tablet 40 MG PO (08:15)
[2023-04-21] MEDS: Atorvastatin Calcium 10 MG Tablet PO (08:16)
[2023-04-21] MEDS: Lisinopril 5 MG Tablet PO (08:16)
[2023-04-21] MEDS: Multivitamins,Ther W-Minerals Tablet 1 TABLET PO (08:16)
[2023-04-21] MEDS: Senna/Docusate Sodium 1 Tablet 2 TABLET PO (08:16)
[2023-04-21] MEDS: Aspirin 81 MG TAB.CHEW PO (08:17)
[2023-04-21 08:43] VITALS: O2SAT 98
[2023-04-21 08:55] VITALS: BP 124/64; PULSE 84; RESP 16; TEMP 36.7; O2SAT 97
--- NOTE | 2023-04-21 09:55 | PCM.PN.ORT ---
Subjective Subjective The patient was sitting in bedside chair with family present upon examination. Patient denies any chest pain, shortness of breath, dizziness, lightheadedness, nausea or vomiting, or calf pain. Pain is controlled on medications. No adverse overnight events. Patient overall is doing very well this morning. She tolerated therapy this morning. Discussed case with medicine and they are okay with discharge home as long as orthopedically stable. Patient did require a second procedure last night due to retained foreign body. She is again doing well this morning with no complaints. She does have outpatient physical therapy established. Preoperatively at her preop appointment there was discussion of possible superficial thrombophlebitis versus DVT. Patient was uncertain of her history. 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 Patient is currently on Xarelto for 2 weeks postoperatively due to past history of DVT. She currently denies any chest pain, shortness of breath or calf pain. Objective Data Objective Data Vital Signs: Vital Signs Temp Pulse Resp BP Pulse Ox O2 Del Method O2 Flow Rate 98.0 F 84 16 124/64 H 97 Room Air 4 04/21/23 08:55 04/21/23 08:55 04/21/23 08:55 04/21/23 08:55 04/21/23 08:55 04/21/23 08:55 04/20/23 16:16 Oxygen Flow Rate (L/min) 4 Oxygen Delivery Method Room Air Weight: 63.5 kg Body Mass Index (BMI) 23.3 Intake & Output: Intake and Output for Last 24 Hours 04/19/23 04/20/23 04/21/23 23:59 23:59 23:59 Intake Total 3984.25 / 3984.25 241.75 / 241.75 Output Total 600 / 600 500 / 500 Balance 3384.25 / 3384.25 -258.25 / -258.25 Lab / Micro Data 04/21/23 06:05 04/21/23 06:05 Labs: Laboratory Results - last 24 hr 04/21/23 06:05: WBC 10.2, RBC 3.54 L, Hgb 11.1 L, Hct 34.3 L, MCV 96.9, MCH 31.4, MCHC 32.4, RDW Std Deviation 50.2 H, RDW Coeff of Elizabeth 14.1, Plt Count 180, MPV 9.5, Sodium 139, Potassium 4.0, Chloride 105, Carbon Dioxide 28.0, Anion Gap 6, BUN 18, Creatinine 0.83, Estim Creat Clear Calc 46.21, Est GFR (MDRD) Af Amer 84, Est GFR (MDRD) Non-Af 70, BUN/Creatinine Ratio 21.7 H, Glucose 94, Calcium 8.6 Micro: Microbiology 04/01/23 12:45 Swab (Method) Nasal Screen MRSA/MSSA - Final Radiography Diagnostic Testing: Radiology Impression Knee X-Ray 04/20/23 09:55 IMPRESSION: Status post right total knee arthroplasty. Electronically Signed: Jack Pérez MD at 10:16 EDT Reading Location ID and State: [id number] / Unknown , Service support , Knee X-Ray 04/20/23 20:20 IMPRESSION: Successful total knee arthroplasty. Electronically Signed: Franklyn Hart MD at 20:32 EDT , Physical Exam Narrative Vital signs stable and afebrile. SCDs and MARY BETH hose are in place bilaterally Patient is able to plantarflex and dorsiflex actively. Sensation is intact to light touch to saphenous, sural, superficial and deep peroneal, and tibial distribution. Dressing is clean dry and intact. Negative Homans bilaterally, negative signs and symptoms of DVT. Const alert, oriented x3 and no apparent distress Assessment & Plan Assessment/Plan (1) History of total right knee replacement: PLAN: 1. S/P right total knee arthroplasty followed by second procedure for removal of foreign body POD #1 2. Continue Pain Medications: Tylenol and oxycodone. Patient does take naproxen at home. We discussed taking nonsteroidal anti-inflammatories on anticoagulant. Plan will be for patient to resume the naproxen at her 2-week follow-up after she is finished her Xarelto. 3. DVT Prophylaxis: Xarelto for 2 weeks postoperatively followed by an additional 2 weeks of aspirin 81 mg twice daily. She does have past history of DVT which was confirmed with the primary care physician. 4. PT/OT: Weightbearing as tolerated with walker 5. H & H: 11.1/34.3, asymptomatic. Postoperative anemia secondary to acute blood loss from surgery without any intra operative complications. 6. Encouraged Incentive Spirometry 7. Disposition: Plan will be for probable discharge home this afternoon as long as patient's pain continues to be well controlled, tolerates therapy, and medically stable. She has outpatient physical therapy established. She will follow-up per postop instructions. She would like her medications E scribed to [facility]. Upon discharge she was instructed to contact her office with any concerns or questions. I have reviewed the [place] Automated Rx Reporting System (OARRS) report for this patient for refill pattern and other prescriber involvement as part of the appropriate surveillance for the provision of acute and chronic controlled medications. The report was requested and reviewed on the date of this entry and was considered in the prescribing process. This dictation was created using voice recognition software. Phonetic and/or grammatical errors may exist.
[2023-04-21 09:59] VITALS: O2SAT 97
--- NOTE | 2023-04-21 10:00 | DCINST_ITS ---
Discharge Instructions Diet Discharge Diet: No restrictions Activity Discharge Activity: May Not Drive (No driving for 6 weeks postoperatively. Must also be off all narcotics and able to walk 100 feet without the use of cane or walker.) May shower in (days): 1 (Please turn dressing away from water. Okay to get wet as long as dressing is intact to skin.) Ice area for (Minutes): 20 (Every 1-2 hours while awake. Please place barrier between the skin and ice pack.) Weight Bearing Status: Weight bearing as tolerated Keep extremity elevated above heart level: Operative Extremity Dressing / Incision Call your doctor if your incision/area has: Continuous Slow Oozing, Sudden Increased Bleeding, Increased Pain/ Swelling, Increased Redness and Foul Smelling Discharge Call your doctor if you observe: Fever of 101 or Higher, Coldness, Increased Pain, Numbness or Tingling, Change in Color, Shortness of breath, Chest pain, Calf discomfort and Uncontrolled pain Remove Dressing in: 4 days (Okay to remove dressing on April 25, 2023) Additional Dressing/Incision Instructions:: Follow [facility] Post-op Instructions. Once postoperative dressing has been removed only use gentle soap and water over the incision. Do not use any ointments, Neosporin, salves, alcohol pads over the incision for 6 weeks postoperatively. Do not submerge underwater for 6 weeks postoperatively. Continue with MARY BETH hose/elastic stockings for 2 weeks postoperatively. May remove at nighttime but needs to be placed back on the leg during the day. Do NOT use alcohol with narcotic pain medication. Do NOT make important decisions while taking narcotic medication. If you have problems with taking your medication (rash, itching, nausea, etc.) call the office at once. Follow Up Care Test Results: Test results from this visit will be discussed in further detail at your follow- up appointment, if applicable. Discharge Plan Admission Admit Date/Time: 04/20/23 07:07 Attending Provider: Bello Myers Primary Care Provider: Sherlyn Nixon Consulting Providers: Christianne Rubio Discharge Orders/Prescriptions Prescriptions: New acetaminophen 500 mg Tablet 1,000 mg PO Q8 14 Days Qty: 84 0RF Rx Instructions: Do not take more than 3000 mg Tylenol in a 24-hour period. oxycodone 5 mg Tablet 5 - 10 mg PO Q4H PRN PRN (Reason: Pain Score 4-10) 5 Days Qty: 42 0RF Xarelto 10 mg Tablet 10 mg PO DAILY@0600 13 Days Qty: 13 0RF Rx Instructions: Take for 2 weeks postoperatively for DVT prophylaxis sennosides-docusate sodium [Stool Softener-Stimulant Laxat] 8.6-50 mg Tablet 2 tab PO BID 3 Days Qty: 12 0RF Rx Instructions: Take until first bowel movement, then as needed Continued atorvastatin 10 MG tablet 10 mg PO BREAKFAST omeprazole 20 MG capsule 40 mg PO DAILY Patient Comments: TAKE 1 CAPSULE BY MOUTH ONCE DAILY dicyclomine 10 MG capsule 10 mg PO DAILY cholecalciferol (vitamin D3) [Vitamin D3] 1,000 UNIT capsule 1,000 unit PO DAILY Women's 50 Plus Daily Formula 1 EACH tablet 1 ea PO DAILY cranberry extract 500 MG capsule 500 mg PO DAILY aspirin 81 MG tablet,chewable 81 mg PO DAILY@0800 0RF alendronate 70 mg tablet 70 mg PO TH Patient Comments: PLEASE SEE ATTACHED FOR DETAILED DIRECTIONS lisinopril 5 mg tablet 5 mg PO DAILY Patient Comments: TAKE 1 TABLET BY MOUTH EVERY DAY famotidine 40 mg tablet 40 mg PO DAILY GenTeal Tears Mild 0.1-0.3 % drops 1 drp ophthalmic (eye) Q12H PRN (Reason: dry eye(s)) Patient Comments: 1 drop into both eyes as directed Discontinued naproxen sodium [Aleve] 220 MG tablet 220 mg PO DAILY Patient Comments: TO STOP FIVE DAYS PRIOR TO OR acetaminophen 325 MG tablet 500 mg PO Q4H PRN (Reason: Pain Score 1-10/Temp > 100.7 F) 0RF Referrals / Follow Up: Physical,Therapy [Other] - 04/25/23 10:00 am Ashok Dyer PA-C [Med Staff - Adv Practice Prof] - 05/05/23 2:00 pm Disposition Disposition (needs filled in before D/C Order can be placed): Home, Self Care
--- NOTE | 2023-04-21 10:34 | CASEMGMT ---
SHAHNAZ GUERRERO Assessment: Face to Face with pt for initial transition planning/care coordination assessment. SHAHNAZ GUERRERO introduced self and role at [facility], pt voices understanding and consents to assessment. Pt is A/O x4 and answers all questions appropriately at this time. Pt sitting up in chair in no distress. Care providers, pharmacy, and demographics verified/updated. Admitting Dx: R total knee with chris PCP:Hussain Specialists:catrachito Myers [facility]: yes LNOK: Adriana Bland, dtr Living Arrangements: Pt lives alone in a single story home with 2 steps to enter with a rail. Pt reports typically she is I in ADL's. Pt dtr will stay with her to assist at home until pt able to be alone. Pt denies concerns at home. Transportation: Pt drives self and denies concerns with transportation. Pt dtr or friend will transport her to medical appts until she is able to drive again. DME/HHC/SNF: Pt has a raised toilet seat, FWW and cane at home. Pt denies hx of HHC or SNF stays. Pt states no concerns with going home at time of dc. She has outpt therapy set up for Tuesday at [facility]. Pt states no further concerns/needs. CM to follow. Advised pt to ask CM if any further question/concerns/needs arise, voices understanding. Pt Goal: Home with outpt therapy already set up Plan: Home with outpt therapy already set up
--- NOTE | 2023-04-21 10:39 | CASEMGMT ---
SHAHNAZ CM in to discuss HER form with patient. RN CM explained HER form, patient voiced understanding. Pt signed form and filed in chart. Pt provided with a copy of signed HER form. Patient had no further questions or concerns at this time.
--- NOTE | 2023-04-21 11:02 | PHA.DC_ITS ---
Pharmacy [facility] Service has performed discharge medication reconciliation and counseling for this patient. The patient was counseled on the following discharge medications and changes in medications for homegoing were reviewed. 1. ACETAMINOPHEN 2. OXYCODONE 3. SENNA-S 4. XARELTO The Reason for Use, instructions for use, and potential side effects were reviewed for all new medications. The patient's questions regarding all of their medications were answered. The patient was able to verbally demonstrate an understanding of their discharge medications. The patient's discharge medication list was reviewed for discrepancies and discrepancies were resolved. Patient counselled by Jesus Alberto Loredo PharmD Candidate
== END 2023-04-21 16:25 | disposition home or self-care (01) ==
LOC: SDC 09:38 → MS3 09:46
PROVIDERS: Admitting Provider Specialist; PCP Nurse Practitioner Family; Referring Provider Specialist; Visit Provider Specialist
PROC: 0SRC0JZ Replacement of Right Knee Joint with Synthetic Substitute, Open Approach (ICD-10-PCS; CPT 27447; principal; 2023-04-20 07:00)
PROC: (CPT 27447; principal; 2023-04-20 18:30)
DX: M17.11 Unilateral primary osteoarthritis, right knee (principal); M81.0 Age-related osteoporosis without current pathological fracture; I10 Essential (primary) hypertension; M21.161 Varus deformity, not elsewhere classified, right knee; T81.590A Other complications of foreign body accidentally left in body following surgical operation, initial encounter; E78.00 Pure hypercholesterolemia, unspecified; K21.9 Gastro-esophageal reflux disease without esophagitis; M25.361 Other instability, right knee; Z86.718 Personal history of other venous thrombosis and embolism; Y65 Other misadventures during surgical and medical care; Y92.234 Operating room of hospital as the place of occurrence of the external cause
CPT/HCPCS: 27447; S2900; 01402; 64447; 27310; 36415; 73560; 80048; 82040; 82962; 83735; 85025; 85027; 87081; 88305; 88311; 93005; 94668; 96361; 96365; 96366; 96375; 97110; 97116; 97162; 97166; 97530; 97535; 99221; 99252; C1776; J7120; G0378; G0463; J2405; J3475

== ENCOUNTER 2023-04-23 10:39 | Emergency (ER) | payer MEDICARE, SELFPAY ==
[2023-04-23 10:41] VITALS: BP 157/105; PULSE 91; RESP 14; TEMP 36.7; O2SAT 97; BMI 24.0
--- NOTE | 2023-04-23 11:12 | VDLE_ITS ---
Reason For Study: Right leg swelling RIGHT LEFT GSV is normal. CFV is compressible, spontaneous, phasic, CFV is compressible, spontaneous, phasic, competent, and demonstrates normal competent and demonstrates normal augmentation. augmentation. FV is compressible, spontaneous, phasic, competent and demonstrates normal augmentation. POP V is compressible, spontaneous, phasic, competent and demonstrates normal augmentation. T/P Trunk is compressible. PTV is compressible. RT PerV is compressible. Acute deep vein thrombosis is noted in the Gastrocnemius V. It is dilated and NONCOMPRESSIBLE. Procedure This is a venous duplex using B-mode, color flow and spectral Doppler. Exam performed portable in ED. A preliminary report was called and/or faxed to Dr. Vallejo. VL/Venous Duplex US, Unilateral Interpretation Summary Acute deep venous thrombosis right gastrocnemius vein. Patent, compressible right great saphenous vein Normal flow patterns left common femoral vein Ordering Physician: Jh Vallejo Referring Physician: Sherlyn Nixon Performed By: Patricia Leslie RVT
--- NOTE | 2023-04-23 11:13 | ED.VIS.LOWEX ---
HPI History of Present Illness Chief Complaint: Other, Pain/Inj Narrative Narrative: 82-year-old female had a right TKA 3 days ago, noticed that she is having more swelling and pain distally into her calf today. No chest pain, shortness of breath, fevers, chills, discharge around the dressing. She is concerned about a blood clot. She is anticoagulated she does not know what the medication is but she has a history of blood clots in this leg. [facility] Medical History Ambulates with cane Arthritis DVT (deep venous thrombosis) Gastric reflux History of diverticulitis History of edema History of pain when walking Hypertension Injury of back Leg cramps Migraines Non-smoker Vertebral compression fracture Wears dentures Wears glasses Home Medications atorvastatin 10 mg tablet 10 mg PO BREAKFAST cholesterol 02/27/17 [History Last Taken 04/19/23] dicyclomine 10 mg capsule 10 mg PO DAILY diverticulitis 02/27/17 [History Last Taken 04/19/23] omeprazole 20 mg capsule,delayed release 40 mg PO DAILY GERD 02/27/17 [History Last Taken 12/02/19 08:00] cholecalciferol (vitamin D3) 25 mcg (1,000 unit) capsule (Vitamin D3) 1,000 unit PO DAILY supplement 03/16/18 [History Last Taken 04/20/23] [id number] ac 400 mcg-calcium carb 500 mg-vit K1 20 mcg tablet (Women's 50 Plus Daily Formula) 1 ea PO DAILY supplement 03/16/18 [History Last Taken 12/02/19 08:00] cranberry extract 500 mg capsule 500 mg PO DAILY supplement 11/15/19 [History Last Taken 04/19/23] aspirin 81 mg chewable tablet 81 mg PO DAILY@0800 12/03/19 [Rx Last Taken 04/15/23] alendronate 70 mg tablet 70 mg PO TH 03/30/23 [History Last Taken Unknown] dextran 70-hypromellose 0.1 %-0.3 % eye drops (GenTeal Tears Mild) 1 drp ophthalmic (eye) Q12H PRN dry eye(s) 03/30/23 [History Last Taken Unknown] famotidine 40 mg tablet 40 mg PO DAILY 03/30/23 [History Last Taken Unknown] lisinopril 5 mg tablet 5 mg PO DAILY 03/30/23 [History Last Taken 04/20/23] acetaminophen 500 mg tablet 1,000 mg (2 x 500 mg) PO Q8 14 days #84 tabs 04/21/23 [Rx Last Taken Unknown] oxycodone 5 mg tablet 5 - 10 mg (1 - 2 x 5 mg) PO Q4H PRN PRN Pain Score 4-10 5 days #42 tabs 04/21/23 [Rx Last Taken Unknown] sennosides 8.6 mg-docusate sodium 50 mg tablet (Stool Softener-Stimulant Laxative) 2 tab PO BID 3 days #12 tabs 04/21/23 [Rx Last Taken Unknown] rivaroxaban 10 mg tablet (Xarelto) 20 mg (2 x 10 mg) PO DAILY@0600 30 days #60 tabs 04/23/23 [Rx Last Taken Unknown] Allergy/AdvReac Type Severity Reaction Status Date / Time amoxicillin AdvReac Unknown Verified 04/23/23 10:41 ibuprofen AdvReac Unknown Verified 04/23/23 10:41 loratadine [From Claritin] AdvReac Unknown Verified 04/23/23 10:41 pravastatin [From Pravachol] AdvReac Unknown Verified 04/23/23 10:41 prochlorperazine AdvReac PT UNABLE Verified 04/23/23 10:41 TO RESPOND-NEEDS F/U sulfamethoxazole AdvReac Unknown Verified 04/23/23 10:41 [From Septra] trimethoprim [From Septra] AdvReac Unknown Verified 04/23/23 10:41 Surgical History H/O bilateral oophorectomy History of back surgery History of kyphoplasty History of laparoscopic cholecystectomy Social History Smoking Status: Never smoker ROS ROS ED Constitutional Constitutional ED: Denies chills or fever(s) Musculoskeletal Musculoskeletal: Reports extremity pain; Denies neck pain Integumentary Denies Abrasions, rash or wounds Neurologic Neurologic: Denies paresthesias or weakness EXAM Physical Exam Const Vital Signs: 04/23/23 10:41 Temperature 98.1 F Temperature Source Temporal Pulse Rate 91 Respiratory Rate 14 Blood Pressure 157/105 H Blood Pressure Mean 122 Pulse Ox 97 Oxygen Delivery Method Room Air Positive well nourished and well developed General Appearance ED: well developed and NAD Neck full ROM and supple Back/Spine normal ROM and normal to inspection Extremity Extremity Narrative: Limited range of motion of the right knee but she is able to move it without significant difficulty. Surgical/operative dressing is intact, there is a slight amount of erythema to the left of it but it is not tender. She does not have other soft tissue tenderness at the knee. Her calf on the right is tender medially, there is no palpable cords, redness, or abscess. She can move her foot well. Neurovascular intact distally. No thigh tenderness or cords. Edematous in the right lower extremity. Neuro oriented x3, no focal motor deficits and no sensory deficits noted Sensorium / Orientation: alert Psych mental status grossly normal and thought process normal Skin no wounds Rashes: no rashes MDM MDM MDM Narrative Medical decision making narrative: According to the patient's list she is on Xarelto. Obtained a duplex ultrasound of the right lower extremity, she has an acute clot in the gastroc vein in her calf. Discussed with Dr. Murphy with vascular. Patient is on Xarelto 10 mg daily, he recommends increasing that to 20 mg daily and can follow-up as an outpatient. Discharge Plan Triage Chief Complaint: Other, Pain/Inj ED Provider: Jh Vallejo Dx/Rx/DC Orders Clinical Impression: Acute deep vein thrombosis (DVT) of right lower extremity Instructions: DVT Dc Prescriptions: Continued atorvastatin 10 MG tablet 10 mg PO BREAKFAST omeprazole 20 MG capsule 40 mg PO DAILY Patient Comments: TAKE 1 CAPSULE BY MOUTH ONCE DAILY dicyclomine 10 MG capsule 10 mg PO DAILY cholecalciferol (vitamin D3) [Vitamin D3] 1,000 UNIT capsule 1,000 unit PO DAILY Women's 50 Plus Daily Formula 1 EACH tablet 1 ea PO DAILY cranberry extract 500 MG capsule 500 mg PO DAILY aspirin 81 MG tablet,chewable 81 mg PO DAILY@0800 0RF alendronate 70 mg tablet 70 mg PO TH Patient Comments: PLEASE SEE ATTACHED FOR DETAILED DIRECTIONS lisinopril 5 mg tablet 5 mg PO DAILY Patient Comments: TAKE 1 TABLET BY MOUTH EVERY DAY famotidine 40 mg tablet 40 mg PO DAILY GenTeal Tears Mild 0.1-0.3 % drops 1 drp ophthalmic (eye) Q12H PRN (Reason: dry eye(s)) Patient Comments: 1 drop into both eyes as directed acetaminophen 500 mg Tablet 1,000 mg PO Q8 14 Days Qty: 84 0RF Rx Instructions: Do not take more than 3000 mg Tylenol in a 24-hour period. oxycodone 5 mg Tablet 5 - 10 mg PO Q4H PRN PRN (Reason: Pain Score 4-10) 5 Days Qty: 42 0RF sennosides-docusate sodium [Stool Softener-Stimulant Laxat] 8.6-50 mg Tablet 2 tab PO BID 3 Days Qty: 12 0RF Rx Instructions: Take until first bowel movement, then as needed Changed Xarelto 10 mg Tablet 20 mg PO DAILY@0600 30 Days Qty: 60 0RF Primary Care Provider: Sherlyn Nixon Referrals: Panda Murphy MD [Med Staff - Active Staff] - (within next couple weeks) Sherlyn Nixon [employer] [Primary Care Provider] - Disposition Disposition: Home, Self Care
== END 2023-04-23 12:39 | disposition home or self-care (01) ==
PROVIDERS: Emergency Provider Emergency Medicine; PCP Nurse Practitioner Family; Visit Provider Emergency Medicine
DX: I82.461 Acute embolism and thrombosis of right calf muscular vein (principal); I10 Essential (primary) hypertension; Z79.82 Long term (current) use of aspirin; Z79.899 Other long term (current) drug therapy; Z96.651 Presence of right artificial knee joint
CPT/HCPCS: 93971; 99282

== ENCOUNTER 2023-06-01 10:30 | Outpatient (RCR) | payer MEDICARE, SELFPAY ==
--- NOTE | 2023-05-02 11:56 | HP.PTEVAL ---
Patient's Visit Information Visit Information Visit Information: PAULIE BARRIOS is a 82 year old F referred to Physical Therapy by Dr. Bello Myers MD with a diagnosis of Right TKR 04/20/23. Date of Evaluation: 04/25/23 Physical Therapist: Radha Pike DPT Visit Plan Frequency: 2-3x /Week Duration: 4 Weeks Plan: TKR- Focus on LE strength/stabilization- ROM and proprioception. HEP Given IE: TKE, Bolster extn stretch with review of current HEP from hospital book Subjective Subjective: Patient has right TKR 04/20/[address] Myers- they did two surgeries- she stayed the night at hospital and went home the next day. She lives alone- she showers in the basement and does laundry- on the first floor she has a sunken tub and got in/out with help. Daughter is staying with her- lives about 15 min away but will return home- but can help as needed. Fully I prior to surgery. She started to have swelling and pain in the calf on Tuesday and has a PMHx of blood clots so they went to the ER. They did a dopplar and found a blood clot on the right calf. They increased her Xarelto- Was cleared by MD to do ROM today. They go back and see PA on the . They are suppose to see vascular- calling tomorrow for apt. She feels that she is missing the strength in her quad. She has a lot of discomfort in the calf but only a little in the knee- 10/10 in the calf- Best: 0/10. Eases: sitting in a recliner, ice and elevation. She describes the pain as dull and achy. Does not want to take pain medication. Sleep: disturbed- side sleeper. PMHx/Meds: no change since at ED on Tuesday. Pain R knee: Pain Intensity (Out of 10): Unrated Objective Objective: Posture: FH, RS- can correct but does not maintain Gait: antalgic- decreased stance on the right LE with poor heel strike and toe off due to lack of ROM and pain- FWW- decreased anand HR/TR: able with UE A SLS: weight shift but no SLS Observation: no s/s of infection- no drainage of bandage- intact with MARY BETH hose Girth: Ankle: 28 cm Patella: 43 cm- unable to do 6 above due to jeans Flex: HS: severe, Gastroc: severe Palpation: tender along medial joint line- did not palpate calf due to blood clot Strength: Ankle: 5/5, Knee: Flexion: 13lbs Extn: 20lbs- SLR: able with min A from PT- does have moderate lag- quad set is visible- all other hip motions: 4/5 ROM: 10 degrees from neutral to 100 degrees of flexion with pain and stiffness at end range. Balance/Special Test Scores Lower Extremity Functional Score: 27 TUG Test Time Seconds: 25 WOMAC Total Score: 61 WOMAC Percentatge: 36.4600 Goals Goal 1:: Patient will be I with HEP and progression Goal Time Frame: 4-6 Weeks Goal 2:: Patient will ambulate >300 feet with a normalized gait pattern Goal Time Frame: 4-6 Weeks Goal 3:: Patient will asc/desc 8 stairs recip with 1 HR Goal Time Frame: 4-6 Weeks Goal 4:: Patient will demo 0-115 degrees of ROM in the right knee Goal Time Frame: 4-6 Weeks Goal 5:: Patient will report 80% improvement Goal Time Frame: 4-6 Weeks Rehabilitation Potential Physical Therapy Diagnosis: Patient presents s/p right TKR 04/20/23- she has decreased LE ROM, strength, flex and muscular endurance leading to abnormal gait and decreased participation with ADL's. Rehabilitation Potential: Good Anticipated Interventions Patient/Client Instruction: Educate patient on: Benefits of Fitness Program Therapeutic Exercise to Include: Strength training, Endurance training, Balance training, Coordination, Agility training, Body mechanics, Postural training, Flexibilty training, Gait and locomotor training, Neuromotor development, Passive ROM, Active ROM, Dynamic Lumbar Stabilization and Scapular Strength/Stabilization For the Purpose of:: To improve muscle performance and motor function Functional Training to Include: Gait training TENS: No Cryotherapy (ice pack, ice massage): Yes Thermo therapy (hot pack): Yes Ultrasound (thermal/non thermal): No Text: Thank you for the opportunity to evaluate your patient. For Medicare and Medicare HMO plans, please review the plan of care and approve it. It will need to be FAXED BACK to us at [phone] for Medicare purposes. For Medicare only, by signing this I certify the plan of care. Please let me know if there are questions or concerns regarding this plan of care. Physician Signature: Date:
--- NOTE | 2023-06-01 10:43 | HP.PTDCSUM ---
Discharge Summary D/C summary: It has been my pleasure to treat PAULIE BARRIOS referred by Dr. Bello Myers MD, with the diagnosis of Right TKR 04/20/23 for a total of 16 visit(s). Discharge Date: Please see the following information for a summary of their discharge status. Subjective Subjective: Patient reports that she feels that she is still a little sore on the outside of the knee due to pulling weeds yesterday and she does still have some swelling. She also still has a little bit of trouble getting her foot up in the shower to wash her foot. She going up/down the basement stairs now. She got up/down off the floor yesterday. Pain R knee: Pain Intensity (Out of 10): 4 Overall Improvement % Improvement: 80 Objective Objective/Function: Posture: good throughout session Gait: no AD- no deviation noted HR/TR: able without UE A SLS: 15 sec without loss of balance Observation: good healing no s/s of infection Girth: Patella: 39 cm Flex: HS: mod, Gastroc: mod Palpation: not tender to touch Strength: Ankle: 5/5, Knee: Flexion: 29 lbs Extn: 40 lbs Hip: 4+/5 ROM: 0- 115 degrees. Stairs: asc/desc 8recip with 1 HR for safety Goals Goal 1:: Patient will be I with HEP and progression Goal Progress: Goal Met Goal 2:: Patient will ambulate >300 feet with a normalized gait pattern Goal Progress: Goal Met Goal 3:: Patient will asc/desc 8 stairs recip with 1 HR Goal Progress: Goal Met Goal 4:: Patient will demo 0-115 degrees of ROM in the right knee Goal Progress: Goal Met Goal 5:: Patient will report 80% improvement Goal Progress: Goal Met Plan Plan: 06/01/23: Discharge to I HEP- encouraged to call if questions TKR- Focus on LE strength/stabilization- ROM and proprioception. HEP Given IE: TKE, Bolster extn stretch with review of current HEP from hospital book D/C Information d/c sentence: If there are questions or concerns regarding this patient's physical therapy, please feel free to call me at [phone]. Thank you for the referral of this patient. Sincerely, Radha Pike, DPT Balance/Gait/Functional tests Balance/Special Test Scores Lower Extremity Functional Score: 64 TUG Test Time Seconds: 25 Tug Test: 20-30sec.=variable mobility WOMAC Total Score: 61 WOMAC Percentage: 36.4600 Improvement % Improvement: 80
== END 2023-06-01 19:00 | disposition home or self-care (01) ==
LOC: PT 10:30
PROVIDERS: PCP Nurse Practitioner Family; Referring Provider Specialist; Visit Provider Specialist
DX: M17.11 Unilateral primary osteoarthritis, right knee (principal); Z96.651 Presence of right artificial knee joint; Z47.1 Aftercare following joint replacement surgery
CPT/HCPCS: 97110; 97162; 97164

== ENCOUNTER → 2023-06-28 | Outpatient (CLI) | payer MEDICARE, SELFPAY | END | disposition home or self-care (01) | PROVIDERS: PCP Nurse Practitioner Family; Visit Provider Nurse Practitioner Family | DX: N39.0 Urinary tract infection, site not specified (principal) | CPT/HCPCS: 87077; 87086; 87088; 87186 ==

== ENCOUNTER → 2024-04-30 | Outpatient (CLI) | payer MEDICARE, SELFPAY | END | disposition home or self-care (01) | LOC: LABSPEC 09:38 | PROVIDERS: PCP Nurse Practitioner Family; Referring Provider Nurse Practitioner Family; Visit Provider Nurse Practitioner Family | DX: N39.0 Urinary tract infection, site not specified (principal) | CPT/HCPCS: 87077; 87086; 87088; 87186 ==

== ENCOUNTER → 2024-09-21 | Outpatient (CLI) | payer MEDICARE, SELFPAY ==
[2024-09-21 08:48] LABS: Absolute Lymphocyte Count 0.93 X10^3/uL (0.83-4.51); Absolute Neutrophil Count 3.8 X10^3/uL (2.0-7.7); Basophil# 0.02 X10^3/uL; Basophil% 0.4 % (0-1); Eosinophil# 0.08 X10^3/uL; Eosinophils% 1.5 % (0-5); Hematocrit 44.5 % (37-47); Hemoglobin 14.7 g/dL (12.0-15.0); Lymphocyte # 0.93 X10^3/ul (0.83-4.51); Mean Corpuscular Hgb 31.5 pg (27.0-32.0); Mean Corpuscular Volume 95.5 fL (81-99); Mean Platelet Vol. 9.7 fl (6.2-12.0); Monocyte# 0.59 X10^3/uL; Monocyte% 10.8 % (0-10); NRBC Flagged by Analyzer 0 % (0-5); Neutrophil # 3.82 X10^3/uL (2.7-7.7); Neutrophil % 69.9 % (47-70); Platelet Count 227 K/mm3 (150-450); RBC Distribution Width CV 13.8 % (11.6-14.6); RBC Distribution Width SD 48.4 fl (35.1-43.9); Red Blood Count 4.66 M/mm3 (4.2-5.4); White Blood Count 5.5 K/mm3 (4.4-11.0)
[2024-09-21 09:24] LABS: ALB/GLOB Ratio 1.3 RATIO (0.9-2.4); AST(SGOT) 17 U/L (15-37); Alanine Aminotransfer ALT/SGPT 24 U/L (13-56); Albumin, Serum 4.3 g/dL (3.2-5.0); Alkaline Phosphatase 81 U/L (45-117); Anion Gap 5 (5-15); BUN 28 mg/dL (7-18); Calcium,Total 9.7 mg/dL (8.5-10.1); Chloride 104 mmol/L (98-107); Cholesterol 227 mg/dL (200); Creatinine, Serum 0.85 mg/dL (0.55-1.02); EST Glomerular Filtration Rate 68 mL/min (>60); Est Glom Filt Rate - Afr Amer 82 mL/min (>60); Globulin 3.3 g/dL (2.2-4.2); Glucose 96 mg/dL (74-106); High Density Lipoprotein 112 mg/dL; Protein, Total 7.6 g/dL (6.4-8.2); Sodium Level 138 mmol/L (136-145); Triglycerides 86 mg/dL; Very Low Density Lipoprotein 17 mg/dL (5-40)
[2024-09-21 09:30] LABS: Vitamin D,25 Hydroxy 44.7 ng/mL
== END | disposition home or self-care (01) ==
LOC: LAB 08:16
PROVIDERS: PCP Nurse Practitioner Family; Referring Provider Nurse Practitioner Family; Visit Provider Nurse Practitioner Family
DX: I10 Essential (primary) hypertension (principal); E78.5 Hyperlipidemia, unspecified; E55.9 Vitamin D deficiency, unspecified
CPT/HCPCS: 36415; 80053; 80061; 82306; 85025

== ENCOUNTER → 2024-11-23 | Outpatient (CLI) | payer MEDICARE, SELFPAY | END | disposition home or self-care (01) | LOC: BFHLAB 15:05 → LABSPEC 15:06 | PROVIDERS: PCP Nurse Practitioner Family; Visit Provider Nurse Practitioner Family | DX: N39.0 Urinary tract infection, site not specified (principal) | CPT/HCPCS: 87077; 87086; 87088; 87186 ==

== ENCOUNTER → 2025-09-16 | Outpatient (CLI) | payer MEDICARE, SELFPAY ==
[2025-09-16 12:25] LABS: Hematocrit 41.2 % (37-47); Hemoglobin 13.5 g/dL (12.0-15.0); Immature Granulocytes Count 0.020 X10^3/uL (0.0-0.0); Mean Corp Hgb Conc 32.8 g/dL (32-36); Mean Corpuscular Volume 96.7 fL (81-99); Mean Platelet Vol. 10.6 fl (6.2-12.0); NRBC Flagged by Analyzer 0 % (0-5); Platelet Count 252 K/mm3 (150-450); RBC Distribution Width CV 13.8 % (11.6-14.6); RBC Distribution Width SD 49.0 fl (35.1-43.9); Red Blood Count 4.26 M/mm3 (4.2-5.4); White Blood Count 5.8 K/mm3 (4.4-11.0)
[2025-09-16 12:56] LABS: AST(SGOT) 22 U/L (<=31); Alanine Aminotransfer ALT/SGPT 20 U/L (<=34); Albumin, Serum 4.2 g/dL (3.4-4.8); Alkaline Phosphatase 80 U/L (35-104); Anion Gap 10 (5-15); BUN 28 mg/dL (4-19); BUN/Creat Ratio 31.5 RATIO (10-20); Calcium,Total 9.9 mg/dL (7.6-11.0); Carbon Dioxide 27.9 mmol/L (21.0-32.0); Chloride 102 mmol/L (98-108); Cholesterol 206 mg/dL (<=200); Globulin 2.5 g/dL (2.2-4.2); Glucose 94 mg/dL (70-99); Low Density Lipoprotein Calc. 100 mg/dL; Potassium 4.2 mmol/L (3.3-5.1); Triglycerides 109 mg/dL; Very Low Density Lipoprotein 22 mg/dL (5-40); Vitamin D,25 Hydroxy 54.2 ng/mL (30-100); cholesterol:hdl ratio screen 2.38
== END | disposition home or self-care (01) ==
LOC: BFHLAB 09:25
PROVIDERS: PCP Nurse Practitioner Family; Visit Provider Nurse Practitioner Family
DX: E78.5 Hyperlipidemia, unspecified (principal); I10 Essential (primary) hypertension; E55.9 Vitamin D deficiency, unspecified
CPT/HCPCS: 36415; 80053; 80061; 82306; 85025